=== PATIENT | female | born 1950 | race Caucasian/White ===

== ENCOUNTER 2016-06-28 21:33 | Inpatient (IN) | payer MEDICARE, MEDICAID, OTHER ==
[~2016-06-28] VITALS: Ht 154.9 cm; Wt 75.3 kg
--- NOTE | 2016-06-28 21:47 | NUR ---
called fr [facility], no response, no answer.
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
[2016-06-28 22:31] LABS: BASOPHILS # (AUTO) 0.1 /CMM (0.0-0.2); BASOPHILS % (AUTO) 1.6 % (0.0-2.0); EOSINOPHILS # (AUTO) 0.3 /CMM (0.0-0.7); EOSINOPHILS % (AUTO) 3.1 % (0.0-6.0); HEMATOCRIT 31 % (33-45); HEMOGLOBIN 10.2 g/dL (11.5-14.8); LYMPHOCYTES % (AUTO) 11.4 % (20.0-44.0); MEAN CORPUSCULAR HEMOGLOBIN 29 PG (26.0-33.0); MEAN CORPUSCULAR HGB CONC 33 g/dl (31.0-36.0); MEAN CORPUSCULAR VOLUME 88 fL (82-100); MONOCYTES # (AUTO) 0.6 /CMM (0.1-1.30); NEUTROPHILS % (AUTO) 76.9 % (43.0-81.0); PLATELET COUNT (AUTO) 401 /CMM (150-450); RDW COEFFICIENT OF VARIATION 15.6 (11.5-15.0); RED BLOOD CELL COUNT(AUTO) 3.55 MIL/uL (4.0-5.2); WHITE BLOOD COUNT (AUTO) 9.2 K/uL (4.3-11.0)
[2016-06-28 22:41] LABS: CALCIUM, SERUM 8.5 mg/dL (8.5-10.1); CARBON DIOXIDE 23 mmol/L (21-32); CHLORIDE 108 mmol/L (98-107); CREATININE 2.8 mg/dL (0.6-1.3); GFR 17 mL/min (>60); GLUCOSE 301 mg/dL (74-106); SODIUM SERUM 143 mmol/L (136-145); UREA NITROGEN, BLOOD 53 mg/dL (7-18)
[2016-06-28 22:47] LABS: ACETAMINOPHEN 0 ug/ml (10-30); ALANINE AMINOTRANSFERASE 36 U/L (12-78); ALBUMIN 3.1 g/dL (3.4-5.0); ALCOHOL, BLOOD < 3 mg/dL (0-0); ALKALINE PHOSPHATASE 71 U/L (46-116); ASPARTATE AMINOTRANSFERASE 22 U/L (15-37); BILIRUBIN,DIRECT 0.1 mg/dL (0.0-0.2); BILIRUBIN,TOTAL 0.3 mg/dL (0.2-1.0); SALICYLATE 1.1 mg/dL (2.8-20.0)
[2016-06-28 23:42] LABS: APPEARANCE,URINE SL CLOUDY (CLEAR); BILIRUBIN,URINE NEGATIVE (NEGATIVE); BLOOD, URINE NEGATIVE Ery/uL (NEGATIVE); COLOR,URINE YELLOW (YELLOW); KETONES,URINE NEGATIVE (NEGATIVE); LEUKOCYTE ESTERASE ,URINE NEGATIVE (NEGATIVE); NITRITE, URINE NEGATIVE (NEGATIVE); PH,URINE 5.5 (5.0-8.0); PROTEIN,URINE 3+ mg/dl (NEGATIVE); UGLUCOSE 1+ mg/dL (NEGATIVE); UROBILINOGEN,URINE 0.2 EU/dL (0.2)
[2016-06-28 23:46] LABS: CANNABINOID, URINE NEGATIVE (NEGATIVE); PHENCYCLIDINE SCREEN,URINE NEGATIVE (NEGATIVE)
[2016-06-28 23:58] LABS: ADD URINE CULTURE YES; BACTERIA,URINE Few /HPF (None Seen); RBC,URINE 0-2 /HPF (0-2); SQUAMOUS EPITHELIAL CELL,UR Few /HPF (None Seen)
--- NOTE | 2016-06-29 02:06 | NUR ---
ART CAPILLA, PERSONAL PROPERTY ASSESSOR AT BEDSIDE FOR EVAL.
--- NOTE | 2016-06-29 02:45 | NUR ---
Lexa sims in [facility] - 06/29/16 at 0312 by ALIICA RYANN AT BEDSIDE FOR EVALUATION
[2016-06-29] MEDS ORDERED: HYDR-4077 PO (03:31)
[2016-06-29] MEDS ORDERED: CARV12.52 PO (03:31)
[2016-06-29] MEDS ORDERED: ISOS10TA2 PO (03:31)
[2016-06-29] MEDS ORDERED: ATOR20TA PO (03:31)
[2016-06-29] MEDS ORDERED: AMLO5TAB2 PO (03:31)
[2016-06-29] MEDS ORDERED: FURO-145 PO (03:31)
[2016-06-29] MEDS ORDERED: CLON0.3T PO (03:31)
[2016-06-29] MEDS ORDERED: SITA50TA PO (03:31)
[2016-06-29] MEDS ORDERED: OLAN5TAB3 PO (03:31)
[2016-06-29] MEDS ORDERED: CLON-418 PO (03:31)
--- NOTE | 2016-06-29 03:31 | NUR ---
REPORT GIVEN TO MIRELLA BRYSON RM 211
[2016-06-29] MEDS ORDERED: LORAZEPAM 0.5 MG TABLET PO PRN (04:30)
[2016-06-29] MEDS ORDERED: MAG HYDROX/AL HYDROX/SIMETH 30 ML UDC PO PRN (04:30)
[2016-06-29] MEDS ORDERED: TEMAZEPAM 7.5 MG CAPSULE PO PRN (04:30)
[2016-06-29] MEDS ORDERED: MAGNESIUM HYDROXIDE 30 ML UDC PO PRN ×2 (04:30→10:00)
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
[2016-06-29 05:26] VITALS: BP 162/98
--- NOTE | 2016-06-29 06:24 | NUR ---
GPS/RN-PLACED A CALL TO DR. SANCHEZ MADE AWARE OF PTS. ADMISSION TO GPS.HE ORDERED TO CONTINUE CURRENT MEDS .
--- NOTE | 2016-06-29 06:50 | NUR ---
TRY TO CALL DAUGHTER CANNOT BE REACH. WILL ENDORSE TO NEXT SHIFT NURSE FOR FOLLOW UP.
[2016-06-29] MEDS ORDERED: MAGN400O6 PO (07:42)
[2016-06-29] MEDS ORDERED: MULT-659 PO (07:42)
[2016-06-29] MEDS ORDERED: ATOR10TA PO (07:42)
[2016-06-29] MEDS ORDERED: ACET-868 PO (07:42)
[2016-06-29] MEDS ORDERED: BLOO-668 IN (07:42)
[2016-06-29 08:00] VITALS: BP 123/61
[2016-06-29] MEDS ORDERED: AMOXICILLIN TRIHYDRATE 500 MG CAPSULE PO SCH ×2 (08:30→09:00)
[2016-06-29] MEDS: BLOOD SUGAR DIAGNOSTIC 1 EACH STRIP IN SCH ×4 (08:30→22:00)
[2016-06-29] MEDS ORDERED: DEXTROSE 50%-WATER 50 ML DISP.SYRIN IV PRN (08:30)
--- NOTE | 2016-06-29 08:54 | NUR ---
GPS RN: PATIENT REFUSED MORNING BLOOD DRAW AND ACCUCHECK, APPROACHED THREE TIMES, EXPLAINED THE IMPORTANCE, STILL REFUSED. NOT IN APPARENT DISTRESS, VS STABLE CONTINUE TO MONITOR.
[2016-06-29] MEDS ORDERED: BLOOD SUGAR DIAGNOSTIC 1 EACH STRIP IN PRN (10:00)
[2016-06-29] MEDS ORDERED: SITAGLIPTIN PHOSPHATE 50 MG TABLET PO SCH (10:00)
[2016-06-29] MEDS ORDERED: ACETAMINOPHEN 325 MG TABLET PO PRN (10:00)
[2016-06-29] MEDS: AMOXICILLIN TRIHYDRATE 250 MG CAPSULE PO SCH ×2 (10:25→21:00)
[2016-06-29] MEDS: AMLODIPINE BESYLATE 5 MG TABLET PO SCH ×2 (10:28→17:50)
[2016-06-29] MEDS: CARVEDILOL 12.5 MG TABLET PO SCH ×2 (10:29→17:50)
[2016-06-29] MEDS: FUROSEMIDE 20 MG TABLET PO SCH (10:29)
[2016-06-29] MEDS: LINAGLIPTIN 5 MG TABLET PO SCH (10:29)
[2016-06-29] MEDS: MULTIVIT, IRON, MIN NO. 8, FA 1 TAB TABLET PO SCH (10:30)
[2016-06-29] MEDS: CLONIDINE HCL 0.1 MG TABLET PO SCH ×2 (11:12→17:00)
[2016-06-29] MEDS ORDERED: CLONIDINE HCL 0.1 MG PO PRN (11:30)
--- NOTE | 2016-06-29 11:53 | NUR ---
Initial discharge plan :Pt. is a resident at [facility] [address] [facility] [address]; [phone] and unsure at this point if will return back. SHERRY contacted Gerber from facility but has not heard back. Will follow up again. Son, Alexander [phone] did not appear to know that pt. is at a facility and is not homeless, as that's what he reported. SHERRY will try to talk to Meli, pt. daughter [phone] to confirm that pt. should return to the facility if facility agrees to readmit her. SHERRY will follow up with MD and pt. and will help form safe and proper discharge.
[2016-06-29] MEDS: hydrALAZINE HCL 50 MG TABLET PO SCH ×2 (12:00→18:46)
--- NOTE | 2016-06-29 12:01 | NUR ---
GPS RN: PATIENT REFUSED BLOOD DRAW X2. ALSO REFUSED ACCUCHECK, EASILY AGITATED.
[2016-06-29] MEDS: ISOSORBIDE DINITRATE (10MG) 10 MG TABLET PO SCH ×2 (13:00→17:51)
[2016-06-29] MEDS: DIVALPROEX SODIUM 125 MG TABLET.DR PO SCH ×2 (13:00→21:00)
[2016-06-29] MEDS: HALOPERIDOL 1 MG TABLET PO SCH ×2 (13:00→17:50)
--- NOTE | 2016-06-29 14:39 | NUR ---
SHERRY called daughter, Meli [phone] but she was unavailable and voicemail was not available; hence, SW was unable to leave a voicemail.
[2016-06-29 16:00] VITALS: BP 136/63
[2016-06-29 20:00] VITALS: BP 135/63
--- NOTE | 2016-06-29 21:10 | NUR ---
PT REFUSED SCHEDULED MEDICATIONS. [id number], EXPLAIN THE RISK AND BENEFITS OF NOT TAKING HER MEDS. PT STILL REFUSED.
[2016-06-29] MEDS: ATORVASTATIN 10 MG TABLET PO SCH (22:00)
--- NOTE | 2016-06-29 22:21 | NUR ---
PT REFUSED HER BLOOD SUGAR TO BE CHECKED. EXPLAIN THE RISK AND BENEFITS. PT STILL REFUSED.
[2016-06-30] MEDS: hydrALAZINE HCL 50 MG TABLET PO SCH ×4 (06:00→17:17)
[2016-06-30] MEDS: BLOOD SUGAR DIAGNOSTIC 1 EACH STRIP IN SCH ×4 (07:44→21:46)
--- NOTE | 2016-06-30 07:55 | NUR ---
GPS RN: PATIENT'S BG LEVEL IS 133, PATIENT REFUSED SS COVERAGE.
[2016-06-30 08:15] VITALS: BP 147/71
[2016-06-30] MEDS: AMLODIPINE BESYLATE 5 MG TABLET PO SCH ×2 (08:54→17:18)
[2016-06-30] MEDS: ISOSORBIDE DINITRATE (10MG) 10 MG TABLET PO SCH ×3 (08:54→17:17)
[2016-06-30] MEDS: MULTIVIT, IRON, MIN NO. 8, FA 1 TAB TABLET PO SCH (08:54)
[2016-06-30] MEDS: DIVALPROEX SODIUM 125 MG TABLET.DR PO SCH ×2 (08:55→21:09)
[2016-06-30] MEDS: CARVEDILOL 12.5 MG TABLET PO SCH ×2 (08:55→17:17)
[2016-06-30] MEDS: LINAGLIPTIN 5 MG TABLET PO SCH (08:55)
[2016-06-30] MEDS: HALOPERIDOL 1 MG TABLET PO SCH ×2 (08:55→17:18)
[2016-06-30] MEDS: AMOXICILLIN TRIHYDRATE 250 MG CAPSULE PO SCH ×2 (08:59→21:08)
[2016-06-30] MEDS: FUROSEMIDE 20 MG TABLET PO SCH (09:00)
[2016-06-30] MEDS: CLONIDINE HCL 0.1 MG TABLET PO SCH ×3 (09:00→17:23)
--- NOTE | 2016-06-30 11:14 | NUR ---
DR. GUTIERREZ GAVE AN ORDER FOR THE DENIAL RIGHTS FOR ROOM SEARCH TO LOOK FOR THE MISSING CORDLESS PHONES.
--- NOTE | 2016-06-30 12:18 | NUR ---
GPS RN: PATIENT REFUSED 1200 ACCUCHECK AND CLONIDINE. EASILY AGITATED. PATIENT NOT IN ANY DISTRESS, CONTINUE TO MONITOR.
[2016-06-30] MEDS: BENZTROPINE MESYLATE (1 MG) 1 MG TABLET PO SCH ×2 (13:21→17:17)
[2016-06-30 16:15] VITALS: BP 133/67
[2016-06-30] MEDS: INSULIN REGULAR, HUMAN 100 UNIT/ML 3 ML VIAL SQ PRN ×2 (17:38→21:48)
--- NOTE | 2016-06-30 17:38 | NUR ---
GPS RN: PATIENT'S BG LEVEL 148MG/DL, PATIENT REFUSED SS COVERAGE. NOT IN ANY DISTRESS, VS STABLE. ALL NEEDS ATTENDED, KEPT CLEAN AND COMFORTABLE, CONTINUE TO MONITOR AND ENDORSE TO THE UPCOMING SHIFT.
[2016-06-30 20:00] VITALS: BP 114/54
[2016-06-30] MEDS: ATORVASTATIN 10 MG TABLET PO SCH (22:28)
[2016-07-01] MEDS: hydrALAZINE HCL 50 MG TABLET PO SCH ×4 (06:00→18:00)
[2016-07-01] MEDS: BLOOD SUGAR DIAGNOSTIC 1 EACH STRIP IN SCH ×4 (07:30→22:00)
[2016-07-01 08:00] VITALS: BP 152/80
[2016-07-01] MEDS: ISOSORBIDE DINITRATE (10MG) 10 MG TABLET PO SCH ×3 (08:29→16:58)
[2016-07-01] MEDS: HALOPERIDOL 1 MG TABLET PO SCH ×3 (08:29→16:56)
[2016-07-01] MEDS: DIVALPROEX SODIUM 125 MG TABLET.DR PO SCH ×2 (08:29→21:54)
[2016-07-01] MEDS: LINAGLIPTIN 5 MG TABLET PO SCH (08:29)
[2016-07-01] MEDS: MULTIVIT, IRON, MIN NO. 8, FA 1 TAB TABLET PO SCH (08:29)
[2016-07-01] MEDS: CARVEDILOL 12.5 MG TABLET PO SCH ×2 (08:30→16:57)
[2016-07-01] MEDS: CLONIDINE HCL 0.1 MG TABLET PO SCH ×3 (08:30→16:57)
[2016-07-01] MEDS: AMOXICILLIN TRIHYDRATE 250 MG CAPSULE PO SCH ×2 (08:30→21:54)
[2016-07-01] MEDS: BENZTROPINE MESYLATE (1 MG) 1 MG TABLET PO SCH ×2 (08:30→16:57)
[2016-07-01] MEDS: AMLODIPINE BESYLATE 5 MG TABLET PO SCH ×2 (08:34→16:56)
--- NOTE | 2016-07-01 08:51 | NUR ---
GPS RN NOTE: PATIENT REFUSED ACCU CHECK COMPLIANT WITH AM MEDICATION WILL CONTINUE MONITORING
--- NOTE | 2016-07-01 11:32 | NUR ---
GPS RN NOTE: PATIENT LYING IN BED WITH HER EYES CLOSED, AWAKE , REFUSED LABS X2 AND REFUSED PER MD ORDER STRAIGHT CATH TO EMPTY HER BLADER , PT EXPLAIN IMPORTANCE ON TX X3 BUT PT CONTINUE TO REFUSED.
[2016-07-01 15:58] VITALS: BP 129/69
[2016-07-01 20:10] VITALS: BP 149/76
[2016-07-01] MEDS: ATORVASTATIN 10 MG TABLET PO SCH (21:54)
--- NOTE | 2016-07-02 00:17 | NUR ---
Pt has been guarded, evasive, isolative, hypervigilant, easily irritable, & refusing her Accucheck but compliant with meds in general.
[2016-07-02] MEDS: hydrALAZINE HCL 50 MG TABLET PO SCH ×4 (05:54→18:00)
[2016-07-02] MEDS: BLOOD SUGAR DIAGNOSTIC 1 EACH STRIP IN SCH ×4 (07:30→20:26)
[2016-07-02] MEDS: DIVALPROEX SODIUM 125 MG TABLET.DR PO SCH ×2 (08:42→20:18)
[2016-07-02] MEDS: CLONIDINE HCL 0.1 MG TABLET PO SCH ×3 (08:42→17:00)
[2016-07-02] MEDS: BENZTROPINE MESYLATE (1 MG) 1 MG TABLET PO SCH ×2 (08:42→17:00)
[2016-07-02] MEDS: CARVEDILOL 12.5 MG TABLET PO SCH ×2 (08:42→17:00)
[2016-07-02] MEDS: AMOXICILLIN TRIHYDRATE 250 MG CAPSULE PO SCH ×2 (08:42→20:17)
[2016-07-02] MEDS: HALOPERIDOL 1 MG TABLET PO SCH ×3 (08:43→17:00)
[2016-07-02] MEDS: ISOSORBIDE DINITRATE (10MG) 10 MG TABLET PO SCH ×3 (08:43→17:00)
[2016-07-02] MEDS: AMLODIPINE BESYLATE 5 MG TABLET PO SCH ×2 (08:43→17:00)
[2016-07-02] MEDS: MULTIVIT, IRON, MIN NO. 8, FA 1 TAB TABLET PO SCH (08:43)
[2016-07-02] MEDS: LINAGLIPTIN 5 MG TABLET PO SCH (08:44)
--- NOTE | 2016-07-02 09:00 | NUR ---
GPS/RN PATIENT REFUSED VITAL SIGNS, ACCUCHECK AND ALL MORNING MEDICATIONS X 3, EXPLAINED RISKS AND BENEFITS, CONTINUES TO REFUSE, WILL CONTINUE TO EDUCATE AND ENCOURAGE TO COMPLY WITH MD REGIMEN
--- NOTE | 2016-07-02 11:00 | NUR ---
GPS/RN PATIENT REFUSED BLOOD DRAW, MORNING AND AFTERNOON, WILL CONTINUE TO EDUCATE AND ENCOURAGE TO COMPLY WITH MD REGIMEN AND TREATMENTS.
--- NOTE | 2016-07-02 12:30 | NUR ---
GPS/RN PATIENT REFUSED VITAL SIGNS, ACCUCHECK AND 1300 MEDICATIONS X 3, EXPLAINED RISKS AND BENEFITS, CONTINUES TO REFUSE, WILL CONTINUE TO EDUCATE AND ENCOURAGE TO COMPLY WITH MD REGIMEN
--- NOTE | 2016-07-02 14:40 | NUR ---
SHERRY called Meli, pt. daughter [phone] again with the same result. SW was informed that pt's daughter moved all pt's belongings and does not want pt. to return back to the facility. SW will have to find a new placement but daughter is not available to discuss options.
--- NOTE | 2016-07-02 14:46 | NUR ---
Pt. was referred to [facility] [address] [place] [address] . Will follow up
[2016-07-02 16:00] VITALS: BP 158/77
--- NOTE | 2016-07-02 17:45 | NUR ---
GPS/RN PATIENT REFUSED ACCUCHECK AND 1700 MEDICATIONS X 3, EXPLAINED RISKS AND BENEFITS, CONTINUES TO ADAMANTLY REFUSE, WILL CONTINUE TO ENCOURAGE TO COMPLY WITH MD REGIMEN AND TREATMENTS.
[2016-07-02] MEDS: ACETAMINOPHEN 325 MG TABLET PO PRN ×2 (20:15→20:18)
[2016-07-02] MEDS: INSULIN REGULAR, HUMAN 100 UNIT/ML 3 ML VIAL SQ PRN (20:29)
--- NOTE | 2016-07-02 20:50 | NUR ---
GPS RN NOTE: BLOOD SUGAR CHECKED = 277 AND INSULIN COVERAGE = 6UNITS GIVEN ORDERED AND REQUESTED BY THE PATIENT
[2016-07-02] MEDS: ATORVASTATIN 10 MG TABLET PO SCH (21:16)
[2016-07-02 21:36] VITALS: BP 180/97
[2016-07-03] MEDS: hydrALAZINE HCL 50 MG TABLET PO SCH ×3 (01:33→12:54)
--- NOTE | 2016-07-03 01:34 | NUR ---
GPS RN NOTE: PATIENT TOOK BP MEDS AT THIS TIME AFTER MULTIPLE OFFERED ATTEMPTS AND EXPLANATIONS. WILL CONTINUE TO MONITOR [id number] FOR SAFETY
[2016-07-03] MEDS: HALOPERIDOL 1 MG TABLET PO SCH ×2 (08:03→12:54)
[2016-07-03] MEDS: CLONIDINE HCL 0.1 MG TABLET PO SCH ×2 (08:05→12:53)
[2016-07-03] MEDS: BENZTROPINE MESYLATE (1 MG) 1 MG TABLET PO SCH (08:06)
[2016-07-03] MEDS: DIVALPROEX SODIUM 125 MG TABLET.DR PO SCH (08:07)
[2016-07-03] MEDS: CARVEDILOL 12.5 MG TABLET PO SCH (08:07)
[2016-07-03] MEDS: ISOSORBIDE DINITRATE (10MG) 10 MG TABLET PO SCH ×2 (08:08→12:54)
[2016-07-03] MEDS: MULTIVIT, IRON, MIN NO. 8, FA 1 TAB TABLET PO SCH (08:08)
[2016-07-03] MEDS: AMLODIPINE BESYLATE 5 MG TABLET PO SCH (08:08)
[2016-07-03] MEDS: LINAGLIPTIN 5 MG TABLET PO SCH (08:09)
[2016-07-03] MEDS: AMOXICILLIN TRIHYDRATE 250 MG CAPSULE PO SCH (08:11)
[2016-07-03] MEDS: BLOOD SUGAR DIAGNOSTIC 1 EACH STRIP IN SCH ×2 (08:11→12:14)
[2016-07-03] MEDS: INSULIN REGULAR, HUMAN 100 UNIT/ML 3 ML VIAL SQ PRN ×2 (08:12→12:15)
--- NOTE | 2016-07-03 08:12 | NUR ---
[id number]: BLOOD SUGAR IS 139 MG/DL AND GAVE 2 UNITS OF REGULAR INSULIN
[2016-07-03 08:36] VITALS: BP 149/92
--- NOTE | 2016-07-03 12:15 | NUR ---
[id number]: BLOOD SUGAR IS 140 MG/DL AND GAVE 2 UNITS OF REGULAR INSULIN
--- NOTE | 2016-07-03 12:27 | NUR ---
Patient got accepted to [facility] [address] [place] [address] .
--- NOTE | 2016-07-03 12:32 | NUR ---
SW attempted to contact patient's daughter, Meli (three times) ([phone]) to inform her that patient is being discharged to [address] [address] . but she was unavailable and voicemail was not available.
[2016-07-03 12:54] VITALS: BP 150/83
--- NOTE | 2016-07-03 13:25 | NUR ---
machine lay out worker contacted patient's daughter Meli ([phone]) to inform her that patient is being discharged [address] [address] . Patient's daughter was agreeable with the discharge plan.
--- NOTE | 2016-07-03 16:00 | NUR ---
[id number]: PT IS 65 YEARS OLD FEMALE DISCHARGE TO [facility] AT [address] [facility] [place]. [address], IN STABLE CONDITION. COMPLIANT WITH MEDICATIONS, COOPERATIVE WITH TREATMENT PLANS. PT DENIES SI/HI. BEHAVIOR IMPROVED, PSYCHIATRIC TX PLANS MET, MEDICAL TX PLANS DEFERRED FOR CONTINUAL MONITORING. EDUCATED PT ABOUT AFTER CARE PLAN AND COPY PROVIDED. RETURN PERSONAL BELONGINGS TO PT. MEDICATIONS RECONCILED WITH DR. GUTIERREZ AND DR. SANCHEZ. REPORT GIVEN TO MADIE AT [facility] FOR CONTINUITY OF CARE. PT REFUSED TO SIGN DISCHARGE PAPERWORK. PT REFUSED SKIN ASSESSMENT
== END 2016-07-03 16:00 | DRG 885 ==
LOC: ER 21:44 → GPS 06-29 02:41
PROVIDERS: ADMIT Psychiatry & Neurology Psychosomatic Medicine; ATTEND Legal Medicine
DX: F29 Unspecified psychosis not due to a substance or known physiological condition (principal); F01.51 Vascular dementia, unspecified severity, with behavioral disturbance; N17.9 Acute kidney failure, unspecified; N18.9 Chronic kidney disease, unspecified; G93.41 Metabolic encephalopathy; I13.0 Hypertensive heart and chronic kidney disease with heart failure and stage 1 through stage 4 chronic kidney disease, or unspecified chronic kidney disease; N39.0 Urinary tract infection, site not specified; I50.30 Unspecified diastolic (congestive) heart failure; Z73.6 Limitation of activities due to disability; Z87.440 Personal history of urinary (tract) infections; E11.22 Type 2 diabetes mellitus with diabetic chronic kidney disease; E78.5 Hyperlipidemia, unspecified; M19.90 Unspecified osteoarthritis, unspecified site
CPT/HCPCS: 36415; 76770-TC; 80048-TC; 80076-TC; 80305; 81000-TC; 82962-TC; 85025-TC; 87081-TC; 87086-TC; A4606; G0480; G6039-TC; J1815; Z7610

== ENCOUNTER 2016-07-05 09:39 | Inpatient (IN) | payer MEDICARE, OTHER, MEDICAID ==
[~2016-07-05] VITALS: Ht 152.4 cm; Wt 54.4 kg
[~2016-07-05 09:39] MED LIST: ACET-868 PO; AMLO5TAB2 PO; ATOR10TA PO; BLOO-668 IN; CARV12.52 PO; CLON-418 PO; CLON0.3T PO; FURO-145 PO; HYDR-4077 PO; ISOS10TA2 PO; MAGN400O6 PO; MULT-659 PO; OLAN5TAB3 PO; SITA50TA PO
[2016-07-05] MEDS ORDERED: ENALAPRILAT DIHYD. (2.5MG/ML) 1.25 MG/ML VIAL IV ONE ×2 (10:00→10:04)
[2016-07-05] MEDS ORDERED: NITROGLYCERIN PACKET 1 GM PACKET TD ONE (10:00)
[2016-07-05] MEDS ORDERED: FUROSEMIDE 40 MG/4 ML VIAL IV ONE (10:00)
[2016-07-05] MEDS ORDERED: ASPIRIN 81 MG TAB.CHEW PO ONE (10:00)
--- NOTE | 2016-07-05 10:00 | NUR ---
BB FROM [facility] FOR SOB THIS AM. SATING AT 89% RA, PALCED ON OXYGEN VIA NC 3LPM SATING AT 97%. PT AAOX2. NOTED ELEVATED BP. SEEN BY FOR EVAL. SAFETY AND COMFORT MEASURES PROVIDED. WILL MONITOR.
[2016-07-05] MEDS ORDERED: ASPIRIN 81 MG TAB.CHEW ONE (10:04)
[2016-07-05] MEDS ORDERED: NITROGLYCERIN PACKET 1 GM PACKET ONE (10:05)
[2016-07-05] MEDS ORDERED: FUROSEMIDE 40 MG/4 ML VIAL ONE (10:05)
[2016-07-05 10:20] LABS: EOSINOPHILS # (AUTO) 0.1 /CMM (0.0-0.7); EOSINOPHILS % (AUTO) 0.7 % (0.0-6.0); HEMOGLOBIN 10.7 g/dL (11.5-14.8); LYMPHOCYTES # (AUTO) 0.7 /CMM (0.8-4.8)
[2016-07-05 10:22] LABS: BASOPHILS # (AUTO) 0.4 /CMM (0.0-0.2); BASOPHILS % (AUTO) 2.8 % (0.0-2.0); HEMATOCRIT 32 % (33-45); LYMPHOCYTES % (AUTO) 5.4 % (20.0-44.0); MEAN CORPUSCULAR HEMOGLOBIN 30 PG (26.0-33.0); MEAN CORPUSCULAR HGB CONC 34 g/dl (31.0-36.0); MEAN CORPUSCULAR VOLUME 88 fL (82-100); MONOCYTES # (AUTO) 0.5 /CMM (0.1-1.30); NEUTROPHILS # (AUTO) 11.4 /CMM (1.8-8.9); NEUTROPHILS % (AUTO) 87.1 % (43.0-81.0); PLATELET COUNT (AUTO) 374 /CMM (150-450); RDW COEFFICIENT OF VARIATION 14.8 (11.5-15.0); RED BLOOD CELL COUNT(AUTO) 3.64 MIL/uL (4.0-5.2); WHITE BLOOD COUNT (AUTO) 13.1 K/uL (4.3-11.0)
[2016-07-05 10:32] LABS: CALCIUM, SERUM 9.5 mg/dL (8.5-10.1); CREATININE 2.2 mg/dL (0.6-1.3); POTASSIUM 4.3 mmol/L (3.5-5.1)
[2016-07-05 10:35] LABS: INR 0.99 (0.87-1.13); PROTHROMBIN TIME 10.3 SECS (9.5-12.7)
[2016-07-05 10:40] LABS: TROPONIN I 0.088 ng/mL (0.00-0.056)
[2016-07-05 10:44] LABS: ALBUMIN 3.5 g/dL (3.4-5.0); BILIRUBIN,DIRECT 0.1 mg/dL (0.0-0.2); BILIRUBIN,TOTAL 0.8 mg/dL (0.2-1.0); TOTAL PROTEIN, SERUM 7.9 g/dL (6.4-8.2)
[2016-07-05] MEDS ORDERED: LORA0.5T PO (11:21)
[2016-07-05] MEDS ORDERED: MAG30ORA PO (11:21)
[2016-07-05] MEDS ORDERED: LINA5TAB PO (11:21)
[2016-07-05] MEDS ORDERED: DIVA125T2 PO (11:21)
[2016-07-05] MEDS ORDERED: INSU100V26 SQ (11:21)
--- NOTE | 2016-07-05 11:27 | NUR ---
DR. DEONTE MORTESNEN SCHEDULE SUPERVISOR
[2016-07-05] MEDS ORDERED: ENAL10TA PO (11:43)
--- NOTE | 2016-07-05 11:57 | NUR ---
DR.BAHADORI CERNA
--- NOTE | 2016-07-05 12:29 | NUR ---
INFORMED NURSING SUP. PT WILL NEED SITTER
--- NOTE | 2016-07-05 14:45 | NUR ---
TRIED CALLING FOR REPORT TO KIANA TWICE NURSE NOT AVAILABLE AT THIS TIME.
--- NOTE | 2016-07-05 15:00 | NUR ---
REPORT GIVEN TO LASHONDA BARRY FOR TELE 109
--- NOTE | 2016-07-05 15:30 | NUR ---
PT ADMITTED FROM [facility] WITH DX OF CHF. BREATHING ON 3LPM VIA N.C. NO S/S OF DISTRESS,NO C/O PAIN.ALL M.D ORDERS NOTED AND CARRIED OUT.WILL CONTINUE TO MONITOR FOR CHANGES.SAFETY MEASURES IN PLACE BED IN LOW AND LOCKED POSITION.ALL NEEDS ANTICIPATED.
[2016-07-05] MEDS ORDERED: BUMETANIDE INJ 0.25 MG/ML VIAL IV SCH (16:00)
[2016-07-05] MEDS ORDERED: ONDANSETRON HCL/PF 4 MG/2 ML VIAL IV PRN (16:00)
[2016-07-05] MEDS ORDERED: ACETAMINOPHEN 325 MG TABLET PO PRN ×2 (16:00→18:00)
[2016-07-05] MEDS: NITROGLYCERIN 30 GM TUBE TP SCH ×2 (17:33→21:31)
[2016-07-05] MEDS ORDERED: BLOOD SUGAR DIAGNOSTIC 1 EACH STRIP IN PRN (18:00)
[2016-07-05] MEDS ORDERED: INSULIN REGULAR, HUMAN 100 UNIT/ML 3 ML VIAL SQ PRN (18:00)
[2016-07-05] MEDS ORDERED: MAG HYDROX/AL HYDROX/SIMETH 30 ML UDC PO PRN (18:00)
[2016-07-05] MEDS ORDERED: hydrALAZINE HCL 50 MG TABLET PO SCH ×2 (18:00→19:00)
[2016-07-05] MEDS ORDERED: LORAZEPAM 0.5 MG TABLET PO PRN (18:00)
[2016-07-05] MEDS: CLONIDINE HCL 0.1 MG TABLET PO SCH (18:11)
[2016-07-05] MEDS: ENOXAPARIN SODIUM 30 MG/0.3 ML DISP.SYRIN SQ SCH (18:44)
[2016-07-05] MEDS ORDERED: BUMETANIDE INJ 16 MG in IV NS 0.9% 16 ML IV ONE (19:00)
--- NOTE | 2016-07-05 19:30 | NUR ---
RN NOTES RECEIVED PT AWKE ON BED. NO ACUTE RESP DISTRESS AT THIS TIME TOLERATED O2 3LPM VIA NC. SATING 98%. TELE MONITOR REVEALS SR HR 71. PT IS AOX 2 ABLE TO MAKE KNOWN NEEDS DAUGHTER AT BEDSIDE. PT ASSISTED TO THE BATHROOM FOR BLADDER BUT WITH PERIODS OF INCONTINENCE NOTED. WITH IV SITE ON LEFT HAND G 18 INTACT AND PATENT WILL STARTED BUMEX ORDERED. ENCOURAGED PT TO ELEVATE BOTH LEGS WITH PILLOWS. CALL LIGHT KEPT WITHIN EASY REACH. WILL MONITOR CLOSELY.
[2016-07-05] MEDS ORDERED: IV SET PRIMARY PUMP SET 1 EA INFUS.SET MC ONE (19:45)
[2016-07-05 20:00] VITALS: BP_SYST 140; BP_SYST 96; BP_DIAS 51; BP_DIAS 70
[2016-07-05] MEDS: ATORVASTATIN 10 MG TABLET PO SCH (21:30)
[2016-07-05] MEDS: DIVALPROEX SODIUM 125 MG TABLET.DR PO SCH (21:30)
[2016-07-06] VITALS: BP 138/69
[2016-07-06] MEDS ORDERED: DEXTROSE 50%-WATER 50 ML DISP.SYRIN IV PRN
[2016-07-06 04:00] VITALS: BP 164/79
[2016-07-06] MEDS: NITROGLYCERIN 30 GM TUBE TP SCH (04:10)
--- NOTE | 2016-07-06 06:00 | NUR ---
RN NOTES PT ASLEEP WELL ON BED. NO ACUTE RESP DISTRESS TOLERATED O2 3LPM VIA NC TOLERATED RA SATING 97% ASSISTED WHEN GOING TO THE BATHROOM PER PT SHE HAS BLURRY EYES AND SAW SHADOWS MOST OF THE TIME FAMILY SAID LAST NIGHT WELL. AMBULATE WITHOUT SOB. AFEBRILE. COMPLAINED OF PAIN IN HER LEGS BUT REFUSED TO HAVE PAIN MEDICINE. NOTED WITH EPISODE PF REFUSING MEDICINE RADHA. INSULIN. RISK AND BENEFITS EXPLAINED.INEFFECTIVE KEPT PT CLEAN AND DRY. REMINDED TO USED CALL LIGHT FOR ASSISTANCE. BED ALARM KEPT ON. BED IN LOWEST POSSIBLE POSITION. CALL LIGHT KEPT WITHIN EASY REACH. WILL ENDORSED CONTINUITY OF CARE TO AM NURSE.
[2016-07-06 06:32] LABS: BASOPHILS # (AUTO) 0.1 /CMM (0.0-0.2); BASOPHILS % (AUTO) 1.1 % (0.0-2.0); EOSINOPHILS # (AUTO) 0.2 /CMM (0.0-0.7); EOSINOPHILS % (AUTO) 2.7 % (0.0-6.0); HEMATOCRIT 29 % (33-45); HEMOGLOBIN 9.5 g/dL (11.5-14.8); LYMPHOCYTES # (AUTO) 1.5 /CMM (0.8-4.8); LYMPHOCYTES % (AUTO) 18.2 % (20.0-44.0); MEAN CORPUSCULAR HEMOGLOBIN 30 PG (26.0-33.0); MEAN CORPUSCULAR HGB CONC 33 g/dl (31.0-36.0); MEAN CORPUSCULAR VOLUME 89 fL (82-100); MONOCYTES # (AUTO) 1.1 /CMM (0.1-1.30); MONOCYTES % (AUTO) 13.6 % (2.0-12.0); NEUTROPHILS # (AUTO) 5.4 /CMM (1.8-8.9); NEUTROPHILS % (AUTO) 64.4 % (43.0-81.0); PLATELET COUNT (AUTO) 296 /CMM (150-450); RDW COEFFICIENT OF VARIATION 16.1 (11.5-15.0); RED BLOOD CELL COUNT(AUTO) 3.23 MIL/uL (4.0-5.2); WHITE BLOOD COUNT (AUTO) 8.3 K/uL (4.3-11.0)
[2016-07-06] MEDS: BLOOD SUGAR DIAGNOSTIC 1 EACH STRIP IN SCH ×4 (06:45→21:59)
[2016-07-06] MEDS: INSULIN REGULAR, HUMAN 100 UNIT/ML 3 ML VIAL SQ PRN ×2 (06:46→22:00)
[2016-07-06 06:48] LABS: CALCIUM, SERUM 8.4 mg/dL (8.5-10.1); CREATININE 2.5 mg/dL (0.6-1.3); PHOSPHORUS 4.5 mg/dL (2.5-4.9)
--- NOTE | 2016-07-06 07:00 | NUR ---
RN INITIAL NOTE REPORT RECEIVED FROM OM NURSE. PT A/O X2 RESTING COMFORTABLY IN BED. IV LH #18G PATENT FLUSHED AND INTACT. ALL SAFETY MEASURES IN PLACE. WILL CONTINUE TO MONITOR CLOSELY.
[2016-07-06 08:00] VITALS: BP 164/79
[2016-07-06] MEDS: ASPIRIN EC 81 MG TABLET.DR PO SCH (08:19)
[2016-07-06] MEDS: PANTOPRAZOLE 40 MG TABLET.DR PO SCH (08:19)
[2016-07-06] MEDS: ENALAPRIL MALEATE (10 MG) 10 MG TABLET PO SCH ×3 (08:19→17:00)
[2016-07-06] MEDS: LINAGLIPTIN 5 MG TABLET PO SCH (08:20)
[2016-07-06] MEDS: CARVEDILOL 12.5 MG TABLET PO SCH ×2 (08:20→16:42)
[2016-07-06] MEDS: AMLODIPINE BESYLATE 5 MG TABLET PO SCH ×2 (08:20→16:41)
[2016-07-06] MEDS: CLONIDINE HCL 0.1 MG TABLET PO SCH ×3 (08:21→17:00)
[2016-07-06] MEDS: DIVALPROEX SODIUM 125 MG TABLET.DR PO SCH ×2 (08:23→21:57)
[2016-07-06] MEDS ORDERED: FUROSEMIDE 80 MG TABLET PO SCH (09:00)
[2016-07-06] MEDS: hydrALAZINE HCL 50 MG TABLET PO SCH ×3 (09:00→17:00)
[2016-07-06] MEDS ORDERED: hydrALAZINE HCL 50 MG TABLET PO SCH (09:00)
[2016-07-06] MEDS: FUROSEMIDE 40 MG TABLET PO SCH (10:18)
[2016-07-06] MEDS: ISOSORBIDE DINITRATE (20MG) 20 MG TABLET PO SCH ×2 (10:19→16:41)
[2016-07-06] MEDS: NIFEdipine XL (30MG) 30 MG TAB PO SCH (10:19)
[2016-07-06 12:00] VITALS: BP 132/61
--- NOTE | 2016-07-06 13:00 | NUR ---
RN NOTE PT REFUSED B.S.
[2016-07-06 16:00] VITALS: BP 113/53
--- NOTE | 2016-07-06 17:45 | NUR ---
RN NOTE PT DOES NOT B.S. TAKEN UNTIL SHE HAS EATEN. EDUCATED PT ON IMPORTANCE OF TAKING IT BEFORE PT REFUSED.
--- NOTE | 2016-07-06 18:44 | NUR ---
RN NOTE B.S. TAKEN 185 PT REFUSED INSULIN.
--- NOTE | 2016-07-06 19:10 | NUR ---
RN INITIAL NOTES RECEIVED PATIENT IN BED, SLEEPING COMFORTABLY. NO DISTRESS NOTED. ON 3LPM OF O2 VIA NC, RESPIRATION IS EVEN AND UNLABORED WITH NO DISTRESS. PATIENT REFUSED TO COOPERATE WITH INITIAL ASSESSMENT AT THIS TIME, INSISTED TO BE LEFT ALONE WITH DOOR TO BE CLOSED. PER AM NURSE, PATIENT REFUSES ACCUCHECK AND INSULIN, OCCASIONALLY REFUSES CARE. PER AM NURSE, PATIENT ALSO INSISTS ON THE DOOR TO BE CLOSED AND TO BE LEFT ALONE. NOTED. PATIENT'S SAFETY AND COMFORT ENSURED. BED ALARM IN PLACE. BED IN LOW AND LOCKED POSITION. CALL LIGHT IN REACH. WILL MONITOR.
--- NOTE | 2016-07-06 19:13 | NUR ---
RN CLOSING NOTE PT A/O X2 RESTING COMFORTABLY IN BED. PT ON NC 3L NO C/O SOB. IV LH #18G SL PATENT FLUSHED AND INTACT. ALL SAFETY MEASURES IN PLACE. HALF OF B/P MEDICATIONS GIVEN FOR 1800 B/P TAKEN 1 HOUR LATER B/P 103/51 THE OTHER HALF NOT GIVEN. ALL ORDERS CARRIED OUT. REPORT GIVEN TO PM NURSE.
[2016-07-06 20:00] VITALS: BP 96/57
--- NOTE | 2016-07-06 20:00 | NUR ---
RN NOTES VS CHECKED ROUTINE BY MILK DRIVER. MILK DRIVER REPORTS TO RN THAT THE PATIENT IS WEARING DIAPER ENDORSED BY AM MILK DRIVER. PATIENT REFUSES PM CARE OFFERED AT THIS TIME. APPROACHED PATIENT AND OFFERED TO PATIENT ASSISTANCE WITH ADLS AND PM CARE. PATIENT OBSERVED TO BE INDIFFERENT, MEAN TO NURSES, INSISTED TO BE LEFT ALONE FOR HER TO SLEEP. PATIENT'S RIGHTS RESPECTED. PATIENT YELLED TO NURSES TO CLOSE THE DOOR ON THE WAY OUT; ENCOURAGED AND EXPLAINED TO PATIENT TO KEEP THE DOOR OPEN FOR SAFETY PRECAUTIONS, PATIENT REFUSED. DOOR CLOSED PER PATIENT'S INSISTENCE AND REQUEST. WILL MONITOR.
[2016-07-06] MEDS: ENOXAPARIN SODIUM 30 MG/0.3 ML DISP.SYRIN SQ SCH (21:00)
[2016-07-06] MEDS: ATORVASTATIN 10 MG TABLET PO SCH (21:57)
--- NOTE | 2016-07-06 22:20 | NUR ---
RN NOTES HS MEDS GIVEN TO PATIENT. PATIENT REFUSED ACCUCHECK, PATIENT ALSO REFUSED LOVENOX; EXPLAINED RISKS AND BENEFITS, PATIENT STRONGLY REFUSED, OBSERVED TO BE AGITATED. SAFETY AND COMFORT ENSURED. CALL LIGHT IN REACH.
[2016-07-07] VITALS: BP 84/47
--- NOTE | 2016-07-07 00:30 | NUR ---
RN NOTES PATIENT'S MIDNIGHT VS WITH BP NOTED TO BE 84/47, PATIENT WITH NO DISTRESS, SR AT 71. ATTEMPTED TO RECHECK PATIENT'S VS, HOWEVER PATIENT REFUSED STRONGLY AND REQUESTED TO BE LEFT ALONE WITH THE DOOR CLOSED. SAFETY AND COMFORT ENSURED. BED IN LOW AND LOCKED POSITION. CALL LIGHT IN REACH. BED ALARM IN PLACE. PATIENT DENIES ANY DIZZINESS, DENIES ANY PAIN AND DISCOMFORT.
--- NOTE | 2016-07-07 02:00 | NUR ---
RN NOTES AT 0135, HEARD BED ALARM SOUNDING OFF DOWN THE HALLWAY, NURSES CAME TO PATIENT'S AID. UPON REACHING THE PATIENT'S ROOM, PATIENT FOUND KNEELING DOWN ON THE SIDE OF THE BED. PATIENT WITH NO CHANGE IN CONSCIOUSNESS NOTED, PATIENT OBSERVED TO BE INDIFFERENT AND REFUSES ANY HELP FROM NURSES. DENIES ANY PAIN AND DISCOMFORT; PATIENT EVEN DENIES FALLING DOWN AND/OR WEAKNESS. STRONGLY REFUSES HELP GETTING UP, AGITATION OBSERVED. EXPLAINED TO PATIENT THAT SHE JUST FELL DOWN AND PROVIDED SAFETY PRECAUTIONS AND FALL PRECAUTIONS TO PATIENT, PATIENT OBSERVED TO BE AGITATED AND STILL REFUSES HELP. 2 NURSES ASSISTED PATIENT BACK TO BED; DURING ASSISTANCE BACK TO BED, PATIENT OBSERVED TO BE WITH BLE WEAKNESS. FURTHER ASSESSMENT MADE, PATIENT DENIES HITTING ANY BODY PART, DENIES DIZZINESS; BODY CHECK DONE, NO REDNESS AND NO BRUISING NOTED. PER PATIENT'S RECOLLECTION OF EVENT, PATIENT WAS TRYING TO GET TO THE BATHROOM, GOT OUT FROM BED AND PER PATIENT "I KNEELED DOWN BY MYSELF, NOONE FELL DOWN." PATIENT STILL INSISTING TO GO TO THE BATHROOM, PATIENT ALREADY WEARING DIAPER, EXPLAINED TO PATIENT WEAKNESS NOTED; EXPLAINED USE OF DIAPER AND OFFERED TO PATIENT USE OF BEDPAN AND/OR COMMODE FOR SAFETY AND FALL PRECAUTION. PATIENT STRONGLY REFUSED USE OF BEDPAN NOR COMMODE. INSISTED TO GO TO BATHROOM. REINFORCED TO PATIENT FALL AND SAFETY PRECAUTIONS, ENCOURAGE TO CALL NURSES FOR ASSISTANCE AT ALL TIMES. PATIENT EVENTUALLY AGREED WITH USE OF BEDPAN. ASSISTED PATIENT NEEDED. PRIVACY PROVIDED. NO URINE PRODUCED BY PATIENT WITH USE OF BEDPAN, PATIENT'S DIAPER IS DRY. PATIENT KEPT CLEAN AND DRY. PERICARE PROVIDED. BED ALARM IN PLACE, CALL LIGHT WITHIN REACH. NURSE TO KEEP CLOSE VISUAL MONITORING ON PATIENT AT ALL TIMES. VS: SUPINE = 95/61, SITTING = 92/60, 75, SR, 98.6 AT 0140, DR. SANCHEZ WAS PAGED TO NOTIFY OF THE FALL INCIDENT, AWAITING CALL BACK. AT 0150, NURSING DIGITAL PRINTER NOTIFIED OF THE FALL INCIDENT. REQUESTED SITTER FOR THE PATIENT. Addendum: 07/07/16 at 0339 by SARAY MENCHACA RN AT 0130, CLINICAL DATA COORDINATOR MADE ROUNDS. CLINICAL DATA COORDINATOR INQUIRED TO PATIENT IF SHE NEEDS ANY ASSISTANCE AND NEED ANYTHING. PATIENT RESPONDED TO CLINICAL DATA COORDINATOR "I DON'T NEED ANYTHING, JUST CLOSE MY DOOR." NOTED.
--- NOTE | 2016-07-07 03:05 | NUR ---
RN NOTES PATIENT IN BED, RESTING COMFORTABLY. EYES CLOSED, EASILY AROUSABLE WITH VERBAL AND TACTILE STIMULI. NO DISTRESS. BED ALARM IN PLACE, SIDE RAILS UP. ON CLOSE VISUAL MONITORING. CALL LIGHT IN REACH.
--- NOTE | 2016-07-07 03:23 | NUR ---
RN NOTES DR. SANCHEZ CALLED BACK, INFORMED OF THE DETAILED INCIDENT OF THE EVENT. NNO GIVEN. PATIENT AT THIS TIME IS SLEEPING SOUNDLY IN BED, SR AT 75. NO DISTRESS NOTED. 3LPM OF O2 VIA NC IN PLACE. ON CLOSE VISUAL MONITORING.
[2016-07-07 04:00] VITALS: BP 98/53
--- NOTE | 2016-07-07 06:48 | NUR ---
RN NOTES PATIENT IN BED, SLEEPING COMFORTABLY, PATIENT IS EASILY AROUSABLE WITH VERBAL AND TACTILE STIMULI. PATIENT OBSERVED TO BE AGITATED WHENEVER SOMEONE GOES INSIDE THE ROOM, YELLS IN FRISIAN THAT SHE WANTS TO BE LEFT ALONE AND SHE WANTS TO SLEEP. PATIENT STRONGLY REFUSED BLOOD DRAW AND AM CARE. EXPLAINED RISKS AND BENEFITS X3 TO NO AVAIL. CN NOTIFIED. PATIENT'S SAFETY AND COMFORT ENSURED. PATIENT WITH CLOSE VISUAL MONITORING AT ALL TIMES, NURSE BY THE ROOM FOR CLOSE MONITORING. BED ALARM IN PLACE, BED IN LOW AND LOCKED POSITION. CALL LIGHT IN REACH. WILL ENDORSE ACCORDINGLY FOR CONTINUITY OF CARE.
[2016-07-07] MEDS: BLOOD SUGAR DIAGNOSTIC 1 EACH STRIP IN SCH ×4 (07:30→22:42)
[2016-07-07 08:00] VITALS: BP 116/50
--- NOTE | 2016-07-07 08:19 | NUR ---
RN NOTES PT REFUSED AM LABS, THIS IS THE 2ND ATTEMPT
[2016-07-07] MEDS: CARVEDILOL 12.5 MG TABLET PO SCH ×2 (09:00→16:51)
[2016-07-07] MEDS: AMLODIPINE BESYLATE 5 MG TABLET PO SCH ×2 (09:00→16:52)
[2016-07-07] MEDS: NIFEdipine XL (30MG) 30 MG TAB PO SCH (09:00)
[2016-07-07] MEDS: ISOSORBIDE DINITRATE (20MG) 20 MG TABLET PO SCH ×2 (11:30→17:31)
[2016-07-07] MEDS: hydrALAZINE HCL 50 MG TABLET PO SCH ×3 (11:30→16:51)
[2016-07-07] MEDS: ASPIRIN EC 81 MG TABLET.DR PO SCH (11:30)
[2016-07-07] MEDS: LINAGLIPTIN 5 MG TABLET PO SCH (11:31)
[2016-07-07] MEDS: DIVALPROEX SODIUM 125 MG TABLET.DR PO SCH ×2 (11:31→21:23)
[2016-07-07] MEDS: FUROSEMIDE 40 MG TABLET PO SCH (11:31)
[2016-07-07] MEDS: PANTOPRAZOLE 40 MG TABLET.DR PO SCH (11:31)
[2016-07-07] MEDS: CLONIDINE HCL 0.1 MG TABLET PO SCH ×3 (11:32→16:50)
[2016-07-07] MEDS: ENALAPRIL MALEATE (10 MG) 10 MG TABLET PO SCH ×3 (11:33→16:51)
[2016-07-07 12:00] VITALS: BP 108/57
[2016-07-07] MEDS: INSULIN REGULAR, HUMAN 100 UNIT/ML 3 ML VIAL SQ PRN (13:33)
[2016-07-07 16:00] VITALS: BP 121/63
--- NOTE | 2016-07-07 17:00 | NUR ---
RN NOTES SPOKE WITH DR SANCHEZ REGARDING PT REFUSING MEDS AND CARE, PER PT HAS PSYCH CONSULT WITH DR GUTIERREZ, CALLED AND LEFT A MESSAGE TO DR GUTIERREZ
--- NOTE | 2016-07-07 18:52 | NUR ---
RN NOTES SPOKE WITH DR GUTIERREZ, MAURIZIO RAGRADING PT'S BEHAVIOR, REGUSING MEDS AND CARE. PT AGITATED AND STRIKING OUT DUING CARE, PER MD TO HAVE TABLEAU ARCHITECT PSYCHIATRIST COME AND SEE THE PT.
[2016-07-07 20:00] VITALS: BP 120/62
[2016-07-07 20:23] LABS: BASOPHILS # (AUTO) 0.1 /CMM (0.0-0.2); BASOPHILS % (AUTO) 0.7 % (0.0-2.0); EOSINOPHILS # (AUTO) 0.5 /CMM (0.0-0.7); EOSINOPHILS % (AUTO) 5.3 % (0.0-6.0); HEMATOCRIT 30 % (33-45); HEMOGLOBIN 9.6 g/dL (11.5-14.8); LYMPHOCYTES # (AUTO) 1.7 /CMM (0.8-4.8); MEAN CORPUSCULAR HEMOGLOBIN 29 PG (26.0-33.0); MEAN CORPUSCULAR HGB CONC 33 g/dl (31.0-36.0); MEAN CORPUSCULAR VOLUME 88 fL (82-100); MONOCYTES # (AUTO) 1.1 /CMM (0.1-1.30); MONOCYTES % (AUTO) 10.7 % (2.0-12.0); NEUTROPHILS # (AUTO) 6.5 /CMM (1.8-8.9); NEUTROPHILS % (AUTO) 66.3 % (43.0-81.0); PLATELET COUNT (AUTO) 332 /CMM (150-450); RDW COEFFICIENT OF VARIATION 15.7 (11.5-15.0); RED BLOOD CELL COUNT(AUTO) 3.33 MIL/uL (4.0-5.2); WHITE BLOOD COUNT (AUTO) 9.8 K/uL (4.3-11.0)
[2016-07-07 20:24] LABS: CREATININE 3.7 mg/dL (0.6-1.3); MAGNESIUM 1.7 mg/dL (1.8-2.4); POTASSIUM 4.3 mmol/L (3.5-5.1)
[2016-07-07] MEDS: ATORVASTATIN 10 MG TABLET PO SCH (21:24)
[2016-07-07] MEDS: ENOXAPARIN SODIUM 30 MG/0.3 ML DISP.SYRIN SQ SCH (21:25)
[2016-07-08] VITALS (8 sets, daily range): BP systolic 115–178; BP diastolic 68–81
[2016-07-08] MEDS: BLOOD SUGAR DIAGNOSTIC 1 EACH STRIP IN SCH ×4 (07:30→21:50)
[2016-07-08] MEDS: PANTOPRAZOLE 40 MG TABLET.DR PO SCH (07:30)
--- NOTE | 2016-07-08 08:00 | NUR ---
TELE1/RN AM SHIFT INITIAL NOTES RECEIVED PT ASLEEP IN BED, AROUSEABLE, ALERT X 1-2, FORGETFUL. ON 3L O2 VIA N/C SATURATING @ 97%, LUNG SOUNDS CLEAR. ON TELE WITH SINUS RHYTHM, HR 73. WITH SITTER AT BEDSIDE. PT REFUSED TO HAVE VITALS TAKEN. VERY COMBATIVE, REFUSED AM MEDS WELL. NO ACUTE CHANGE OF CONDITION NOTED. CL WITHIN REACHED REACHED AND SAFETY MAINTAINED. ON GOING MONITORING.
[2016-07-08] MEDS: CLONIDINE HCL 0.1 MG TABLET PO SCH ×3 (09:00→16:21)
[2016-07-08] MEDS: AMLODIPINE BESYLATE 5 MG TABLET PO SCH ×2 (09:00→16:20)
[2016-07-08] MEDS: hydrALAZINE HCL 50 MG TABLET PO SCH ×3 (09:00→16:20)
[2016-07-08] MEDS: DIVALPROEX SODIUM 125 MG TABLET.DR PO SCH ×2 (09:00→21:40)
[2016-07-08] MEDS: NIFEdipine XL (30MG) 30 MG TAB PO SCH (09:00)
[2016-07-08] MEDS: CARVEDILOL 12.5 MG TABLET PO SCH ×2 (09:00→16:21)
[2016-07-08] MEDS: ASPIRIN EC 81 MG TABLET.DR PO SCH (09:00)
[2016-07-08] MEDS: ISOSORBIDE DINITRATE (20MG) 20 MG TABLET PO SCH ×2 (09:00→16:23)
[2016-07-08] MEDS: LINAGLIPTIN 5 MG TABLET PO SCH (09:00)
[2016-07-08] MEDS: ENALAPRIL MALEATE (10 MG) 10 MG TABLET PO SCH ×3 (09:00→16:20)
--- NOTE | 2016-07-08 10:40 | NUR ---
MS1/RN ROUNDS - DR. HENDERSON PT SEEN & EXAMINED BY DR. HENDERSON. BP TO BE REACHED, MANUALLY.
--- NOTE | 2016-07-08 11:00 | NUR ---
MS1/RN ROUNDS - DR. SANCHEZ UPDATED PT'S CONDITION, NOTIFIED HIM THAT PT IS REFUSING BLOOD DRAWS, MEDICATIONS AND VITAL SIGNS.
--- NOTE | 2016-07-08 12:00 | NUR ---
MS1/RN NOON ROUNDS PT CONTINUED TO SLEEP AROUSABLE. BUT ONCE AWAKEN BECOMES COMBATIVE. PT REFUSED BREAKFAST AND LUNCH. REFUSED MEDICATIONS WELL. BS CHECKED 135. PT IS ALERT VERBALIZED "IS NOT YOUR BUSINESS TO BOTHER ME" BECOMES AGITATED WHEN BEING CHECKED UP ON. MONITORING CONTINUED.
--- NOTE | 2016-07-08 15:00 | NUR ---
MS1/RN AFTERNOON ROUNDS PT ASLEEP BUT CAN BE AWAKEN, ASKED IF SHE WANTED TO EAT, AGAIN REFUSED SAID TO STAY AWAY FROM HER. MONITORING.
--- NOTE | 2016-07-08 16:30 | NUR ---
MS1/RN UPDATE - DR. SANCHEZ SPOKE TO DR. SANCHEZ NOTIFY HIM THAT PT HAS REFUSED BOTH SCHEDULED MEDICATION IN THE MORNING & NOON, BREAKFAST AND LUNCH. BP CHECKED NOW 178/81, HR 77, BS CHECKED 120. PT DENIES ANY SYMPTOMS. NO NEW ORDERS RECEIVED. WILL CONVINCE PT TO TAKE HER PM BP MEDS. MONITORING. Addendum: 07/08/16 at 1830 by SILVESTRE CHAVIRA RN ADDENDUM: PT FINALLY AGREED TO TAKE HER BP MEDS AND IS EATING HER LUNCH TRAY. WILL RE-CHECK BP. MONITORING CONTINUED.
--- NOTE | 2016-07-08 19:17 | NUR ---
MS1/RN AM SHIFT END NOTES BP DECREASED 137/68, HR 71. PT FINALLY ALLOWED OPERATIONS TRAINER TO PROVIDE PM CARE. PT IS COMFORTABLE. ALL NEEDS MET. PT ENDORSED TO PM NURSE TO CONTINUE CARE. CL WITHIN REACHED AND SAFETY MAINTAINED.
[2016-07-08] MEDS: ENOXAPARIN SODIUM 30 MG/0.3 ML DISP.SYRIN SQ SCH ×2 (21:00→21:42)
[2016-07-08] MEDS: ATORVASTATIN 10 MG TABLET PO SCH (21:40)
--- NOTE | 2016-07-08 21:50 | NUR ---
RN NOTES: PATIENT REFUSED ACCU-CHECK. WILL CONTINUE TO MONITOR.
[2016-07-09 04:00] VITALS: BP 151/68
--- NOTE | 2016-07-09 06:26 | NUR ---
RN NOTES: PATIENT REFUSED BLOOD DRAW AND ACCU-CHECK. WILL ENDORSE IT TO AM SHIFT NURSE TO CONTINUE THE CARE.
--- NOTE | 2016-07-09 07:20 | NUR ---
RN INITIAL NOTES: Rec'd pt asleep on bed, not in any distress, A/O x2. On O2 at 3lpm/NC, saturating at 99%. Pt has L hand G22, SL, flushed, patent & intact w/ no signs of infection/ infiltration. Provided comfort & safety measures. Call light placed w/in reach. Bed kept low & in locked position. Will continue to monitor.
[2016-07-09] MEDS: BLOOD SUGAR DIAGNOSTIC 1 EACH STRIP IN SCH ×4 (07:54→21:51)
[2016-07-09 08:00] VITALS: BP 145/73
[2016-07-09 08:21] LABS: BASOPHILS # (AUTO) 0.1 /CMM (0.0-0.2); BASOPHILS % (AUTO) 0.7 % (0.0-2.0); EOSINOPHILS # (AUTO) 0.6 /CMM (0.0-0.7); EOSINOPHILS % (AUTO) 6.3 % (0.0-6.0); HEMATOCRIT 32 % (33-45); HEMOGLOBIN 10.4 g/dL (11.5-14.8); LYMPHOCYTES # (AUTO) 2.1 /CMM (0.8-4.8); LYMPHOCYTES % (AUTO) 22.2 % (20.0-44.0); MEAN CORPUSCULAR HEMOGLOBIN 28 PG (26.0-33.0); MEAN CORPUSCULAR HGB CONC 32 g/dl (31.0-36.0); MEAN CORPUSCULAR VOLUME 88 fL (82-100); MONOCYTES # (AUTO) 0.9 /CMM (0.1-1.30); MONOCYTES % (AUTO) 9.5 % (2.0-12.0); NEUTROPHILS # (AUTO) 5.9 /CMM (1.8-8.9); NEUTROPHILS % (AUTO) 61.3 % (43.0-81.0); PLATELET COUNT (AUTO) 331 /CMM (150-450); RDW COEFFICIENT OF VARIATION 15.4 (11.5-15.0); RED BLOOD CELL COUNT(AUTO) 3.66 MIL/uL (4.0-5.2); WHITE BLOOD COUNT (AUTO) 9.6 K/uL (4.3-11.0)
[2016-07-09 08:37] LABS: ALBUMIN 2.6 g/dL (3.4-5.0); BILIRUBIN,TOTAL 0.4 mg/dL (0.2-1.0); CALCIUM, SERUM 8.5 mg/dL (8.5-10.1); CREATININE 2.9 mg/dL (0.6-1.3); MAGNESIUM 1.8 mg/dL (1.8-2.4); PHOSPHORUS 4.2 mg/dL (2.5-4.9); POTASSIUM 3.9 mmol/L (3.5-5.1); TOTAL PROTEIN, SERUM 6.8 g/dL (6.4-8.2)
[2016-07-09] MEDS: LINAGLIPTIN 5 MG TABLET PO SCH (09:21)
[2016-07-09] MEDS: ASPIRIN EC 81 MG TABLET.DR PO SCH (09:21)
[2016-07-09] MEDS: PANTOPRAZOLE 40 MG TABLET.DR PO SCH (09:21)
[2016-07-09] MEDS: DIVALPROEX SODIUM 125 MG TABLET.DR PO SCH ×2 (09:21→21:40)
[2016-07-09] MEDS: hydrALAZINE HCL 50 MG TABLET PO SCH ×3 (09:23→17:06)
[2016-07-09] MEDS: CLONIDINE HCL 0.1 MG TABLET PO SCH ×3 (09:24→17:07)
[2016-07-09] MEDS: CARVEDILOL 12.5 MG TABLET PO SCH ×2 (10:43→17:06)
[2016-07-09] MEDS: NIFEdipine XL (30MG) 30 MG TAB PO SCH (10:43)
[2016-07-09] MEDS: AMLODIPINE BESYLATE 5 MG TABLET PO SCH ×2 (10:44→17:07)
[2016-07-09] MEDS: ENALAPRIL MALEATE (10 MG) 10 MG TABLET PO SCH ×3 (10:44→17:07)
[2016-07-09] MEDS: ISOSORBIDE DINITRATE (20MG) 20 MG TABLET PO SCH ×2 (10:44→17:07)
[2016-07-09] MEDS: INSULIN REGULAR, HUMAN 100 UNIT/ML 3 ML VIAL SQ PRN ×2 (12:22→17:31)
[2016-07-09 16:00] VITALS: BP 143/69
--- NOTE | 2016-07-09 16:09 | NUR ---
RN NOTES CALLED DR KING, LEFT A MESSAGE TO FOLLOW UP PT FOR PSYCH EVAL. AWAITING FOR CALL BACK.
--- NOTE | 2016-07-09 19:25 | NUR ---
RN CLOSING NOTES: No acute changes noted w/in shift. No desaturation, no SOB, no LOC noted. L hand G22, SL, kept patent & intact w/ no signs of infection/ infiltration. Kept well rested. Call light placed w/in reach. Bed kept low & in locked position. Followed up w/ Dr. Kaur re: clonidine patch that Dr. Ramos suggested. Awaiting response. Endorsed to PM RN for KAIA.
--- NOTE | 2016-07-09 19:40 | NUR ---
RN NOTES RECEIVED PT ASLEEP WELL ON BED WITH PERIODS OF FORGETFUL, FEAR AND SADNESS .WHEN AWAKE .BREATHING EVEN AND UNLABORED. NO ACUTE RESP DISTRESS TOLERATED O2 2LPM VIA NC. WARMTH TO TOUCH. AFEBRILE. IV SITE N LEFT HAND G 22 INTACT AND PATENT. KEPT PT CLEAN AND DRY. BED IN LOCKED AND IN LOWEST POSSIBLE POSITION GÉNESIS LIGHT KEPT WITHIN EASY REACH. CONTINUE TO MONITOR.
[2016-07-09] MEDS: ATORVASTATIN 10 MG TABLET PO SCH (21:40)
[2016-07-09] MEDS: ENOXAPARIN SODIUM 30 MG/0.3 ML DISP.SYRIN SQ SCH (21:51)
[2016-07-10 04:00] VITALS: BP 148/64
--- NOTE | 2016-07-10 06:59 | NUR ---
RN NOTES PT AWAKE AT THIS TIME. ENCOURAGED TO STAND FOR BATHROOM AND TO CHECKED WEIGHT BUT PT JUST WANTED TO BE ON BED.PT REMAINED IN STABLE CONDITION THROUGHOUT THE SHIFT NO ACUTE RESP DISTRESS. ALL NEEDS ATTENDED. KEPT PT CLEAN AND DRY INCONTINENT CARE RENDERED. KEPT PT CLEAN AND COMFORTABLE IN BED. WILL ENDORSED CONTINUITY OF CARE TO AM NURSE.
[2016-07-10 08:00] VITALS: BP 145/73
--- NOTE | 2016-07-10 08:00 | NUR ---
RN INITIAL NOTES PT AOX2, CALM, COOPERATIVE, REFUSED MORNING INSULIN, BUT TOOK OTHER SCHEDULED MEDS, ON O2 3 L/MIN, NO SOB, LUNGS CLEAR, DIMINISHED, DENIES PAIN, NO FEVER, SKIN INTACT, ON CARDIAC DIET, MEAL INTAKE 25% FLUID INTAKE ENCOURAGED, NO EDEMA, SKIN COLOR WNL, WARM AND DRY, VS STABLE, ABLE TO WALK TO THE BATHROOM WITH FWW AND 1 PERSON ASSISTANCE, PT TURNING AND REPOSITION ENCOURAGED, KEPT CLEAN AND DRY. SAFETY MAINTAINED BED IN LOW AND LOCKED POSITION, BED ALARM ON, CALL LIGHT WITHIN REACH. EDUCATION TO PT PROVIDED ,VERBALIZED UNDERSTANDING, LABS WNL.
[2016-07-10] MEDS: BLOOD SUGAR DIAGNOSTIC 1 EACH STRIP IN SCH ×2 (08:23→12:26)
[2016-07-10] MEDS: PANTOPRAZOLE 40 MG TABLET.DR PO SCH (08:48)
[2016-07-10] MEDS: hydrALAZINE HCL 50 MG TABLET PO SCH ×2 (08:49→12:26)
[2016-07-10] MEDS: ASPIRIN EC 81 MG TABLET.DR PO SCH (08:49)
[2016-07-10] MEDS: CLONIDINE HCL 0.1 MG TABLET PO SCH ×2 (08:50→12:25)
[2016-07-10] MEDS: CARVEDILOL 12.5 MG TABLET PO SCH (08:50)
[2016-07-10] MEDS: DIVALPROEX SODIUM 125 MG TABLET.DR PO SCH (08:50)
[2016-07-10] MEDS: NIFEdipine XL (30MG) 30 MG TAB PO SCH (08:51)
[2016-07-10] MEDS: LINAGLIPTIN 5 MG TABLET PO SCH (08:51)
[2016-07-10] MEDS: ISOSORBIDE DINITRATE (20MG) 20 MG TABLET PO SCH (08:51)
[2016-07-10] MEDS: AMLODIPINE BESYLATE 5 MG TABLET PO SCH (08:51)
[2016-07-10] MEDS: ENALAPRIL MALEATE (10 MG) 10 MG TABLET PO SCH ×2 (08:52→12:26)
--- NOTE | 2016-07-10 09:00 | NUR ---
RN NOTES PT AOX2, COOPERATIVE, CALM, ENCOURAGED TO GO TO THE BATHROOM, REFUSED INSULIN, RISKS AND BENEFITS EXPLAINED, STILL REFUSED.
[2016-07-10 12:26] VITALS: BP 137/70
[2016-07-10] MEDS: INSULIN REGULAR, HUMAN 100 UNIT/ML 3 ML VIAL SQ PRN (12:33)
[2016-07-10 12:35] LABS: CREATININE, URINE 81.3 MG/DL (30.0-125.0); URINE TOTAL PROTEIN 299.1 mg/dL (0-11.9)
--- NOTE | 2016-07-10 12:43 | NUR ---
RN NOTES PT REFUSES INSULIN INJECTIONS, BG 205 MG /DL, RISKS AND BENEFITS EXPLAINED PT STILL REFUSED, DR SANCHEZ AWARE.
[2016-07-10 12:48] LABS: APPEARANCE,URINE CLEAR (CLEAR); BILIRUBIN,URINE NEGATIVE (NEGATIVE); BLOOD, URINE NEGATIVE Ery/uL (NEGATIVE); COLOR,URINE YELLOW (YELLOW); KETONES,URINE NEGATIVE (NEGATIVE); LEUKOCYTE ESTERASE ,URINE NEGATIVE (NEGATIVE); NITRITE, URINE NEGATIVE (NEGATIVE); PROTEIN,URINE 3+ mg/dl (NEGATIVE); UGLUCOSE TRACE mg/dL (NEGATIVE); UROBILINOGEN,URINE 0.2 EU/dL (0.2)
[2016-07-10 13:10] LABS: ADD URINE CULTURE NO; BACTERIA,URINE None seen /HPF (None Seen); HYALINE CASTS, URINE Few /LPF (None Seen); RBC,URINE NONE SEEN /HPF (0-2); SQUAMOUS EPITHELIAL CELL,UR Few /HPF (None Seen); WBC,URINE 0-2 /HPF (0-3); YEAST,URINE Rare /HPF (None Seen)
[2016-07-10 13:46] LABS: EOSINOPHIL,URINE None Seen
--- NOTE | 2016-07-10 16:30 | NUR ---
RN NOTE PT DISCHARGED TO [facility] / [facility], VIA AMBULANCE, IN STABLE CONDITION, REPORT GIVEN TO TEOFILO BARRY, BELONGING LIST SIGNED, BELONGINGS GIVEN TO PT, EXIT CARTE DONE, DISCHERGE INSTRUCTIONS GIVEN, SIGNED, MEDICATION LIST PROVIDE, ID AND IV REMOVED.
== END 2016-07-10 16:42 | DRG 280 ==
LOC: ER 09:40 → TELE1 13:43 → MEDSG1 07-08 10:41
PROVIDERS: ADMIT Legal Medicine; ATTEND Legal Medicine
DX: I13.0 Hypertensive heart and chronic kidney disease with heart failure and stage 1 through stage 4 chronic kidney disease, or unspecified chronic kidney disease (principal); I21.4 Non-ST elevation (NSTEMI) myocardial infarction; G93.40 Encephalopathy, unspecified; I50.23 Acute on chronic systolic (congestive) heart failure; N17.0 Acute kidney failure with tubular necrosis; N18.4 Chronic kidney disease, stage 4 (severe); E11.22 Type 2 diabetes mellitus with diabetic chronic kidney disease; E78.5 Hyperlipidemia, unspecified; R56.9 Unspecified convulsions; G30.9 Alzheimer's disease, unspecified; F02.80 Dementia in other diseases classified elsewhere, unspecified severity, without behavioral disturbance, psychotic disturbance, mood disturbance, and anxiety; F29 Unspecified psychosis not due to a substance or known physiological condition; F01.50 Vascular dementia, unspecified severity, without behavioral disturbance, psychotic disturbance, mood disturbance, and anxiety; Z79.84 Long term (current) use of oral hypoglycemic drugs; Z87.440 Personal history of urinary (tract) infections; Z91.19 Patient's noncompliance with other medical treatment and regimen
CPT/HCPCS: 36415; 71010-TC; 80048-TC; 80053-TC; 80061-TC; 80076-TC; 81000-TC; 82570-TC; 82962-TC; 83735-TC; 83880; 84100-TC; 84155-TC; 84300-TC; 84484-TC; 85025-TC; 85730-TC; 87081-TC; 92611-TC; 93307-TC; 94799-TC; 97001-TC; A4216; A4606; J1650; J1815; J1940; J3490; Z7610

== ENCOUNTER 2016-08-07 18:23 | Inpatient (IN) | payer MEDICARE, OTHER ==
[~2016-08-07] VITALS: Ht 162.6 cm; Wt 52.4 kg
[~2016-08-07 18:23] MED LIST changes: -CLON-418 PO; +DIVA125T2 PO; +ENAL10TA PO; -FURO-145 PO; +INSU100V26 SQ; +LINA5TAB PO; +LORA0.5T PO; +MAG30ORA PO; -MAGN400O6 PO; -MULT-659 PO; -OLAN5TAB3 PO; -SITA50TA PO
--- NOTE | 2016-08-07 18:25 | NUR ---
PT IDALIA FROM [facility]: NAUSEA, VOMITING, ABD PAIN SINCE AM. PLACED ON MONITOR. VSS. AWAITING MD ORDER. GOWNED PT MADE COMFORTABLE.
--- NOTE | 2016-08-07 18:49 | NUR ---
CALLED NURSING SUP. FOR MS BED
[2016-08-07] MEDS ORDERED: IV NS 0.9% 1,000 ML BAG IV ONE (19:00)
[2016-08-07] MEDS ORDERED: ONDANSETRON HCL/PF 4 MG/2 ML VIAL IVP ONE (19:00)
[2016-08-07] MEDS ORDERED: IV SET PRIMARY PUMP SET 1 EA INFUS.SET MC ONE (19:02)
[2016-08-07] MEDS ORDERED: IV NS 0.9% 1,000 ML ONE (19:02)
[2016-08-07] MEDS ORDERED: ONDANSETRON HCL/PF 4 MG/2 ML VIAL ONE (19:02)
[2016-08-07 19:10] LABS: BASOPHILS # (AUTO) 0.1 /CMM (0.0-0.2); BASOPHILS % (AUTO) 1.4 % (0.0-2.0); EOSINOPHILS # (AUTO) 0.1 /CMM (0.0-0.7); EOSINOPHILS % (AUTO) 1.5 % (0.0-6.0); HEMATOCRIT 38 % (33-45); LYMPHOCYTES # (AUTO) 1.1 /CMM (0.8-4.8); LYMPHOCYTES % (AUTO) 18.4 % (20.0-44.0); MEAN CORPUSCULAR HEMOGLOBIN 30 PG (26.0-33.0); MEAN CORPUSCULAR HGB CONC 34 g/dl (31.0-36.0); MEAN CORPUSCULAR VOLUME 89 fL (82-100); MONOCYTES # (AUTO) 0.3 /CMM (0.1-1.30); MONOCYTES % (AUTO) 5.7 % (2.0-12.0); NEUTROPHILS # (AUTO) 4.4 /CMM (1.8-8.9); PLATELET COUNT (AUTO) 462 /CMM (150-450); RDW COEFFICIENT OF VARIATION 13.6 (11.5-15.0); RED BLOOD CELL COUNT(AUTO) 4.32 MIL/uL (4.0-5.2)
--- NOTE | 2016-08-07 19:11 | NUR ---
CIRCULAR TANK [employer]OPER AT BEDSIDE
--- NOTE | 2016-08-07 19:15 | NUR ---
Assumed care of pt. pt lying in bed w/ resp even & unlabored, nad noted, on continuous monitoring w/ IV flds continue to be infusing. pt sent to CT.
--- NOTE | 2016-08-07 19:19 | NUR ---
GAVE REPORT TO JENNIFER FOR [facility]
--- NOTE | 2016-08-07 19:19 | NUR ---
SON SUSAN [phone] DAUGHTER SILVINO [phone]
[2016-08-07] MEDS ORDERED: SENN8.6T6 PO (19:23)
[2016-08-07] MEDS ORDERED: DOCU-170 PO (19:23)
[2016-08-07] MEDS ORDERED: NA P133E RC (19:23)
[2016-08-07] MEDS ORDERED: ASPI81TA2 PO (19:23)
[2016-08-07] MEDS ORDERED: BISA10SU8 RC (19:23)
[2016-08-07] MEDS ORDERED: NIFE60TA2 PO (19:23)
[2016-08-07] MEDS ORDERED: ISOS40TA16 PO (19:23)
[2016-08-07] MEDS ORDERED: MAGN400O6 PO (19:23)
[2016-08-07 19:30] LABS: ALBUMIN 3.3 g/dL (3.4-5.0); BILIRUBIN,DIRECT 0.1 mg/dL (0.0-0.2); BILIRUBIN,TOTAL 0.6 mg/dL (0.2-1.0); CALCIUM, SERUM 9.3 mg/dL (8.5-10.1); CREATININE 2.6 mg/dL (0.6-1.3); INR 0.97 (0.87-1.13); PROTHROMBIN TIME 10.1 SECS (9.5-12.7); TOTAL PROTEIN, SERUM 7.9 g/dL (6.4-8.2)
[2016-08-07 19:33] LABS: TROPONIN I 0.086 ng/mL (0.00-0.056)
--- NOTE | 2016-08-07 19:40 | NUR ---
pt back fr CT w/ resp even & unlabored, no active N/V w/ nad noted. On continuous monitoring.
[2016-08-07] MEDS ORDERED: ASPIRIN 81 MG TAB.CHEW ONE (20:16)
--- NOTE | 2016-08-07 20:24 | NUR ---
PO aspirin given as ordered
--- NOTE | 2016-08-07 20:25 | NUR ---
report given to the floor; accepted by [facility].
[2016-08-07] MEDS ORDERED: ASPIRIN 81 MG TAB.CHEW PO ONE (20:30)
--- NOTE | 2016-08-07 20:40 | NUR ---
PRIMARY SPECIAL EDUCATION TEACHER NOTE RECEIVED PATIENT FROM ER VIA GURNEY, PATIENT IS ALERT AND ORIENTEDX2, BED REST, NO S/S OF RESPIRATORY DISTRESS OR PAIN AT THIS TIME. IV ON RIGHT FA IS PATENT AND INTACT. SKIN IS INTACT AND DRY ALSO. WILL CONNECT TO TELE MONITOR. SRX2, BED IN LOW POSITION, CALL LIGHT WITHIN REACH, WILL CONTINUE TO MONITOR PATIENT.
[2016-08-07] MEDS ORDERED: ACETAMINOPHEN 650 MG/SUPP.RECT RC PRN (23:00)
[2016-08-07] MEDS ORDERED: Z GUARD REMEDY 2 OZ OINT TP PRN (23:00)
[2016-08-07] MEDS ORDERED: NITROGLYCERIN PACKET 1 GM PACKET TOP PRN (23:00)
[2016-08-07] MEDS ORDERED: IV D5W 50 ML IV ONE (23:04)
[2016-08-07] MEDS ORDERED: PIPERACILLIN /TAZOBACTAM 2.25 G VIAL IV ONE (23:04)
[2016-08-07] MEDS ORDERED: IV D5/0.45 NACL 1,000 ML IV ONE (23:11)
[2016-08-07] MEDS: IV D5/0.45 NACL 1,000 ML IV PRN (23:15)
[2016-08-07] MEDS: PIPERACILLIN /TAZOBACTAM 2.25 G in IV D5W 50 ML IV SCH (23:16)
[2016-08-07] MEDS ORDERED: SECONDARY IV SET 1 EA INFUS.SET MC ONE (23:18)
--- NOTE | 2016-08-07 23:30 | NUR ---
CONCRETE POINTER NOTE PATIENT'S BP UPON ADMISSION WAS 177/91, HR 90. AT 2300, BP WAS 189/96, HR 90. PATIENT WAS ASYMPTOMATIC. CONTACTED DR GARCIA AND GOT AN ORDER OF HYDRALAZINE 10MG Q4H PRN. ORDERS PUT IN AND WILL CARRY OUT. Addendum: 08/08/16 at 0144 by BENSON CABA RN hydralazine ivp q4h prn.
[2016-08-07] MEDS ORDERED: hydrALAZINE HCL IV 20 MG VIAL ONE (23:47)
[2016-08-07] MEDS: hydrALAZINE HCL IV 20 MG VIAL IV PRN (23:53)
[2016-08-08] VITALS: BP 178/87
[2016-08-08] MEDS ORDERED: NITROGLYCERIN PACKET 1 GM PACKET ONE (00:53)
--- NOTE | 2016-08-08 00:56 | NUR ---
NETWORK ANNOUNCER NOTE PATIENT'S BP IS STILL HIGH OF 178/87 PULSE 97. WILL ADMINISTER NITRO PATCH 1GM.
[2016-08-08] MEDS ORDERED: ONDANSETRON HCL/PF 4 MG/2 ML VIAL ONE (01:55)
[2016-08-08] MEDS: ONDANSETRON HCL/PF 4 MG/2 ML VIAL IVP PRN ×2 (01:59→23:56)
[2016-08-08 04:00] VITALS: BP 158/50
[2016-08-08] MEDS ORDERED: PIPERACILLIN /TAZOBACTAM 2.25 G VIAL IV ONE (04:52)
[2016-08-08] MEDS ORDERED: IV D5W 50 ML IV ONE (04:53)
[2016-08-08] MEDS: PIPERACILLIN /TAZOBACTAM 2.25 G in IV D5W 50 ML IV SCH ×4 (06:13→23:47)
[2016-08-08 07:04] LABS: BASOPHILS # (AUTO) 0.1 /CMM (0.0-0.2); BASOPHILS % (AUTO) 1.6 % (0.0-2.0); EOSINOPHILS # (AUTO) 0.1 /CMM (0.0-0.7); EOSINOPHILS % (AUTO) 2.1 % (0.0-6.0); HEMATOCRIT 32 % (33-45); HEMOGLOBIN 10.8 g/dL (11.5-14.8); LYMPHOCYTES # (AUTO) 1.3 /CMM (0.8-4.8); LYMPHOCYTES % (AUTO) 18.8 % (20.0-44.0); MEAN CORPUSCULAR HEMOGLOBIN 30 PG (26.0-33.0); MEAN CORPUSCULAR HGB CONC 34 g/dl (31.0-36.0); MEAN CORPUSCULAR VOLUME 90 fL (82-100); MONOCYTES # (AUTO) 0.7 /CMM (0.1-1.30); MONOCYTES % (AUTO) 10.1 % (2.0-12.0); NEUTROPHILS # (AUTO) 4.7 /CMM (1.8-8.9); NEUTROPHILS % (AUTO) 67.4 % (43.0-81.0); PLATELET COUNT (AUTO) 388 /CMM (150-450); RDW COEFFICIENT OF VARIATION 14.7 (11.5-15.0); RED BLOOD CELL COUNT(AUTO) 3.58 MIL/uL (4.0-5.2); WHITE BLOOD COUNT (AUTO) 6.9 K/uL (4.3-11.0)
[2016-08-08 07:24] LABS: TROPONIN I 0.111 ng/mL (0.00-0.056)
--- NOTE | 2016-08-08 07:30 | NUR ---
SOLVENT RECOVERER INITIAL NOTE PT IS AWAKE IN BED. A/O X2, COOPERATIVE. SKIN IS INTACT. IV ACCESS ON RT FOREARM WITH D5 1/2 NS RUNNING AT 75 ML/HR. PT IS NPO DUE TO VOMITING. BED IS IN LOW POSITION WITH SIDE RAILS UP. WILL CONTINUE TO MONITOR
--- NOTE | 2016-08-08 07:32 | NUR ---
SUPERVISOR PROCESS TESTING NOTE PATIENT IS RESTING IN BED COMFORTABLY, NO S/S OF RESPIRATORY DISTRESS AND PAIN NOTED. IV ON RIGHT FA IS PATENT AND INTACT, HL ONLY. ENDORSED TO DAY SHIFT FOR KAIA.
[2016-08-08 07:39] LABS: ALBUMIN 2.8 g/dL (3.4-5.0); BILIRUBIN,TOTAL 0.5 mg/dL (0.2-1.0); CALCIUM, SERUM 8.5 mg/dL (8.5-10.1); CREATININE 2.4 mg/dL (0.6-1.3); MAGNESIUM 2.3 mg/dL (1.8-2.4); POTASSIUM 4.2 mmol/L (3.5-5.1); TOTAL PROTEIN, SERUM 6.8 g/dL (6.4-8.2)
--- NOTE | 2016-08-08 07:45 | NUR ---
MS/RN Patient received Patient received from licensed nursing assistant. Appears comfortable, in no distress. No nausea or vomiting noted since being admitted to floor. Call light within reach, side rails X3 in upright position, bed in low setting. Will continue to monitor and ensure safety.
[2016-08-08 08:00] VITALS: BP 193/98
--- NOTE | 2016-08-08 08:01 | NUR ---
MS RN NOTES DR MANSFIELD HAS BEEN NOTIFIED OF HIGH BLOOD PRESSURE AND HOME MEDS BEING DISCONTINUED BY DOCTOR RADHA
[2016-08-08 08:28] LABS: THYROID STIMULATING HORMONE 1.265 uIU/mL (0.358-3.74)
[2016-08-08] MEDS ORDERED: MAGNESIUM HYDROXIDE 30 ML UDC PO PRN (08:30)
[2016-08-08] MEDS ORDERED: BLOOD SUGAR DIAGNOSTIC 1 EACH STRIP IN PRN (08:30)
[2016-08-08] MEDS ORDERED: NA PHOS,M-B/NA PHOS,DI-BA 1 EA ENEMA RC PRN (08:30)
[2016-08-08] MEDS ORDERED: BISACODYL SUPP (10 MG) 10 MG/SUPP.RECT SUPP.RECT RC PRN (08:30)
[2016-08-08] MEDS ORDERED: MAG HYDROX/AL HYDROX/SIMETH 30 ML UDC PO PRN (08:30)
[2016-08-08] MEDS ORDERED: VALPROATE 500 MG in IV D5W 100 ML IV SCH (09:00)
[2016-08-08] MEDS: ISOSORBIDE DINITRATE (20MG) 20 MG TABLET PO SCH ×2 (09:30→17:00)
[2016-08-08] MEDS: NIFEdipine XL 60 MG TAB PO SCH (09:30)
[2016-08-08] MEDS: ASPIRIN 81 MG TAB.CHEW PO SCH (09:31)
[2016-08-08] MEDS: AMLODIPINE BESYLATE 5 MG TABLET PO SCH ×2 (09:31→17:00)
[2016-08-08] MEDS: CARVEDILOL 12.5 MG TABLET PO SCH ×2 (09:31→17:00)
[2016-08-08] MEDS: LINAGLIPTIN 5 MG TABLET PO SCH (09:31)
[2016-08-08] MEDS: DIVALPROEX SODIUM 125 MG TABLET.DR PO SCH ×2 (09:32→21:00)
[2016-08-08] MEDS: DOCUSATE SODIUM 100 MG CAPSULE PO SCH ×2 (09:32→17:00)
[2016-08-08] MEDS: PANTOPRAZOLE 40 MG VIAL IV SCH (09:32)
[2016-08-08] MEDS: ENALAPRIL MALEATE (10 MG) 10 MG TABLET PO SCH ×3 (09:34→17:00)
[2016-08-08] MEDS: hydrALAZINE HCL 50 MG TABLET PO SCH ×3 (09:34→17:00)
--- NOTE | 2016-08-08 09:45 | NUR ---
MS/RN Hypertension All home medications including blood pressure medications continued by Dr Madrid. Patient refusing to open mouth and take any pills. Attempting to persuade patient to cooperate without any success. aware.
--- NOTE | 2016-08-08 10:00 | NUR ---
MS/RN Labs reviewed Morning labs reviewed: -H&H 10.8 -Trop 0.111
--- NOTE | 2016-08-08 10:19 | NUR ---
MS/RN S/B Dr Madrid Seen by Dr Madrid - possible non stemi, latest troponin 0.111. 2Decho on last admission within normal limits. Home medications continued, including all of blood pressure medications.
--- NOTE | 2016-08-08 11:00 | NUR ---
MS/RN S/B Dr Kovacs Seen by Dr Kovacs - nausea and vomiting due to possible gastroenteritis. Will schedule for EGD, telephone consent to be obtained from family. Remains NPO for abdominal ultra sound.
--- NOTE | 2016-08-08 11:15 | NUR ---
MS/RN Consent Family called twice to obtain telephone consent for EGD, but no response, voice mail left.
[2016-08-08] MEDS ORDERED: SECONDARY IV SET 1 EA INFUS.SET MC ONE (11:28)
[2016-08-08] MEDS: NITROGLYCERIN 30 GM TUBE TOP PRN (12:23)
--- NOTE | 2016-08-08 12:30 | NUR ---
MS/RN Hypertension Blood pressure remains elevated at 189/88, Dr Mccyo informed. Order given for catapres 0.3mg patch.
[2016-08-08] MEDS: CLONIDINE HCL 0.3 MG/24H PTWK 1 EA PATCH TD SCH (15:41)
[2016-08-08 16:00] VITALS: BP 192/97
--- NOTE | 2016-08-08 16:13 | NUR ---
MS/RN Abdominal US Abdominal ultrasound shows acute cholecystitis, Dr Mccoy made aware of results
--- NOTE | 2016-08-08 16:30 | NUR ---
MS/RN Dr Khari Lucia's office called to inform of abdominal ultrasound result. Message left wit office staff.
[2016-08-08] MEDS: hydrALAZINE HCL IV 20 MG VIAL IV PRN ×2 (18:30→23:57)
--- NOTE | 2016-08-08 18:30 | NUR ---
MS/RN Elevated blood pressure BP remains elevated at 198/100, hydralazine 10mg administered.
--- NOTE | 2016-08-08 19:00 | NUR ---
MS RN CLOSING NOTES PT REMAINS COMFORTABLE, BP ELEVATED. ENDORSED TO COLLECTIONS TECHNICIAN TO FOLLOW UP ON HYDROLADOZE GIVEN AT 1820. FOLLOW UP WITH DAUGHTER FOR CONSENT FOR EGD. WILL HAND OFF REPORT TO COLLECTIONS TECHNICIAN
--- NOTE | 2016-08-08 19:30 | NUR ---
BIOMEDICAL ENGINEERING TECHNOLOGIST NOTES RECEIVED PATIENT IN BED, AWAKE AND VERBALLY RESPONSIVE, NO APPARENT DISTRESS NOTED, NO SOB, DENIES PAIN. IV LINE PATENT INFUSING D51/S NS AT 60CC/HR. PATIENT IS SCHEDULED FOR EGD TOMORROW, COULD NOT REACH RESPONSIBLE REPUBLICAN FOR CONSENT, SEVERAL MESSAGES WERE LEFT. PER DR MATA CALL HIM TOMORROW ONCE PATIENT IS CONSENTED. ALL NEEDS MET, KEPT CLEAN AND DRY. CALL LIGHT WITHIN REACH.
[2016-08-08 20:00] VITALS: BP 166/99
[2016-08-08] MEDS: ATORVASTATIN 10 MG TABLET PO SCH (22:00)
[2016-08-08] MEDS: SENNOSIDES 8.6 MG TABLET PO SCH (22:00)
[2016-08-08] MEDS: IV D5/0.45 NACL 1,000 ML IV PRN (23:47)
[2016-08-09] VITALS (7 sets, daily range): BP systolic 168–199; BP diastolic 88–104
[2016-08-09] MEDS: MORPHINE SULFATE INJ 2 MG/ML DISP.SYRIN IV PRN (00:02)
[2016-08-09] MEDS: METOPROLOL TARTRATE INJ 5 MG/5 ML AMPUL IVP PRN ×3 (01:48→14:16)
--- NOTE | 2016-08-09 03:30 | NUR ---
MIDDLEWARE SYSTEMS ARCHITECT NOTES PATIENT SLEEPING,EASILY AROUSED, IN NO APPARENT DISTRESS, NO SOB DENIES PAIN. PATENT NOTED WITH ELEVATED BP OF 199/104 HR 102, HYDRALAZINE IV GIVEN BP STILL 198/104 1 HOUR AFTER ADMINISTRATION. ADMINISTERED METOPROLOL IV, BP DROPPED TO 166/98. PATIENT IS NPO DUE TO PROCEDURE SCHEDULED IN AM.
[2016-08-09] MEDS: PIPERACILLIN /TAZOBACTAM 2.25 G in IV D5W 50 ML IV SCH ×3 (05:36→18:09)
[2016-08-09] MEDS: NITROGLYCERIN 30 GM TUBE TOP PRN ×2 (06:27→19:21)
[2016-08-09 06:35] LABS: BASOPHILS # (AUTO) 0.1 /CMM (0.0-0.2); BASOPHILS % (AUTO) 1.4 % (0.0-2.0); EOSINOPHILS # (AUTO) 0.1 /CMM (0.0-0.7); HEMATOCRIT 35 % (33-45); HEMOGLOBIN 11.3 g/dL (11.5-14.8); LYMPHOCYTES # (AUTO) 1.1 /CMM (0.8-4.8); LYMPHOCYTES % (AUTO) 15.1 % (20.0-44.0); MEAN CORPUSCULAR HEMOGLOBIN 30 PG (26.0-33.0); MEAN CORPUSCULAR HGB CONC 33 g/dl (31.0-36.0); MEAN CORPUSCULAR VOLUME 90 fL (82-100); MONOCYTES # (AUTO) 0.6 /CMM (0.1-1.30); MONOCYTES % (AUTO) 7.7 % (2.0-12.0); NEUTROPHILS # (AUTO) 5.4 /CMM (1.8-8.9); NEUTROPHILS % (AUTO) 73.8 % (43.0-81.0); PLATELET COUNT (AUTO) 423 /CMM (150-450); RDW COEFFICIENT OF VARIATION 14.2 (11.5-15.0); RED BLOOD CELL COUNT(AUTO) 3.82 MIL/uL (4.0-5.2); WHITE BLOOD COUNT (AUTO) 7.4 K/uL (4.3-11.0)
--- NOTE | 2016-08-09 07:00 | NUR ---
FILLER BLOCK INSERTER REMOVER CLOSING NOTES PATIENT IN BED, NO APPARENT DISTRESS NOTED, NO SOB NOTED, DENIES PAIN. PATIENT NOTED WITH ELEVATED BP MD AWARE. NOTED WITH DISTENDED ABDOMEN, BLADDER SCANNER USED WITH >[address] GARCIA, WITH NEW ORDERS FOR STRAIGHT CATH AND INFORM MD IN MORNING. 900CC DRAINED FROM STRAITH CATH. ALL NEEDS MET, KEPT CLEAN AND DRY.
[2016-08-09 07:11] LABS: ALBUMIN 2.8 g/dL (3.4-5.0); BILIRUBIN,TOTAL 0.6 mg/dL (0.2-1.0); CREATININE 2.2 mg/dL (0.6-1.3); MAGNESIUM 2.2 mg/dL (1.8-2.4); PHOSPHORUS 3.5 mg/dL (2.5-4.9); POTASSIUM 3.9 mmol/L (3.5-5.1); TOTAL PROTEIN, SERUM 7.2 g/dL (6.4-8.2)
[2016-08-09 07:21] LABS: TROPONIN I 0.115 ng/mL (0.00-0.056)
--- NOTE | 2016-08-09 07:30 | NUR ---
MS BARRY INITIAL NOTES RECEIVED REPORT FROM BARKER OPERATOR. PT IS SLEEPING IN BED. NO SIGNS OF SOB. BP REMAINS ELEVATED 182/98 HEART RATE 92. WILL ADMINISTER METROPROLOL. WILL FOLLOW UP WITH CONSENT FOR EGD WITH THE PTS DAUGHTER WILL CONTINUE TO MONITOR.
--- NOTE | 2016-08-09 07:42 | NUR ---
MS RN CONSENT ATTEMPTED TO CONTACT DAUGHTER, SILVINO RUFFIN AT FOR CONSENT FOR EGD. NO RESPONSE, UNABLE TO LEAVE VOICEMAIL.
[2016-08-09] MEDS: hydrALAZINE HCL 50 MG TABLET PO SCH ×3 (07:45→17:00)
[2016-08-09] MEDS: PANTOPRAZOLE 40 MG VIAL IV SCH (07:50)
[2016-08-09] MEDS: DOCUSATE SODIUM 100 MG CAPSULE PO SCH ×2 (07:58→17:00)
[2016-08-09] MEDS: ENALAPRIL MALEATE (10 MG) 10 MG TABLET PO SCH ×3 (07:59→17:00)
[2016-08-09] MEDS: LINAGLIPTIN 5 MG TABLET PO SCH (07:59)
[2016-08-09] MEDS: AMLODIPINE BESYLATE 5 MG TABLET PO SCH ×2 (08:00→17:00)
[2016-08-09] MEDS: NIFEdipine XL 60 MG TAB PO SCH (08:00)
[2016-08-09] MEDS: DIVALPROEX SODIUM 125 MG TABLET.DR PO SCH ×2 (08:00→20:33)
[2016-08-09] MEDS: ISOSORBIDE DINITRATE (20MG) 20 MG TABLET PO SCH ×2 (08:00→17:00)
[2016-08-09] MEDS: CARVEDILOL 12.5 MG TABLET PO SCH ×2 (08:01→17:00)
[2016-08-09] MEDS: ASPIRIN 81 MG TAB.CHEW PO SCH (08:01)
--- NOTE | 2016-08-09 08:04 | NUR ---
MS/RN Hypertension Blood pressure remains elevated at 182/98, metoprolol 5mg given IVP. Will monitor effectiveness.
[2016-08-09] MEDS: ONDANSETRON HCL/PF 4 MG/2 ML VIAL IVP PRN ×2 (13:28→19:26)
--- NOTE | 2016-08-09 13:39 | NUR ---
MS RN CONSENT ATTEMPTED TO CONTACT THE DAUGHTER AGAIN, SILVINO RUFFIN AT FOR CONSENT FOR EGD. NO RESPONSE, UNABLE TO LEAVE VOICEMAIL.
--- NOTE | 2016-08-09 14:30 | NUR ---
MS/setter induction heating equipment Blood pressure remains elevated, metoprolol 5mg given. Will monitor effectiveness.
--- NOTE | 2016-08-09 14:55 | NUR ---
MS RN CONSENT PATIENTS DAUGHTER SILVINO CALLED AND WAS ABLE TO GIVE CONSENT. DR. POND WAS NOTIFIED OF CONSENT GIVEN. AWAITING SCHEDULING OF ECG. WAS ABLE TO GET UPDATED PHONE NUMBERS OF FAMILY SILVINO -DAUGHTER SUSAN -SON
--- NOTE | 2016-08-09 15:06 | NUR ---
MS/RN Blood pressure Patient's blood pressure remains elevated at 198/94, despite metoprolol 5mg being administered. Order given by Dr Mccoy to increase dose to 10mg every 6hrs prn. Pharmacy called and spoke with Julisa. Maximum dose of metoprolol that can be administered at one time is 5mg, and frequency can not be decreased. Dr Mccoy called for second time to inform. Order given to discontinue metoprolol and start labetolol 20mg IV q6hrs prn. New order entered into [facility].
[2016-08-09] MEDS ORDERED: SOD FERRIC GLUC 125 MG in IV NS 0.9% 100 ML IV ONE (16:00)
--- NOTE | 2016-08-09 16:00 | NUR ---
MS/RN Labetolol Pharmacy called as medication still not available.
[2016-08-09] MEDS ORDERED: SECONDARY IV SET 1 EA INFUS.SET MC ONE (16:04)
--- NOTE | 2016-08-09 16:51 | NUR ---
MS/delinquency prevention social worker Dr Mccoy called update as to patient's condition and continuously elevated blood pressure, latest being 198/98. Order given to transfer patient to Tele TD. Charge nurse made aware, nursing dry paste supervisor called for bed.
--- NOTE | 2016-08-09 17:53 | NUR ---
MS/unionmelt operator TD Transfer Patient transfer to TD per Dr Mccoy's order for control of blood pressure. Report given at bedside to Ashley. All medications transferred with patient.
[2016-08-09] MEDS: LABETALOL HCL IV 100MG VIAL IV PRN (18:05)
--- NOTE | 2016-08-09 18:40 | NUR ---
RECEIVED PT. FRO 3 COOLIN FOR HIGH B.P 198/98.PT HAS NEW ORDER FOR LABETALOL 20 MG/4ML I.V.WHICH WAS ADMINISTERED AT 1830.WILL MONITOR B.P FOR CHANGES
[2016-08-09] MEDS: hydrALAZINE HCL IV 20 MG VIAL IV PRN (20:00)
[2016-08-09] MEDS: SENNOSIDES 8.6 MG TABLET PO SCH (20:33)
[2016-08-09] MEDS: ATORVASTATIN 10 MG TABLET PO SCH (20:33)
--- NOTE | 2016-08-09 21:20 | NUR ---
RN:TD: PT RECEIVED IN BED, ABLE TO OPEN EYES SPONTANEOUSLY. PER FAMILY PATIENT DENIES PAIN. PT REFUSING TO TAKE ANY PO MEDICATIONS AND SPITS THEM OUT. PT BP 200'S SYSTOLIC. D/W DR GARCIA REGARDING ELEVATED BP DESPITE DAYSHIFT GIVING LABETALOL. NEW ORDERS TO INCREASE IV HYDRALAZINE DOSE AND ADMIN NITRO PASTE PREVIOUSLY ORDERED. BP RECHECKED AND IS 180'S. D/W WITH MD REGARDING ELEVATED BP AND IF NURSE SHOULD CONTACT GI DOCTOR PERFORMING EGD ABOUT ABNORMAL VITAL SIGNS. MD STATED IT IS NOT NECESSARY TO NOTIFY OTHER MD REGARDING HIGH BP. D/W PT FAMILY AT THE BEDSIDE REGARDING SCHEDULE EGD AT 1100 08/10. FAMILY AWARE AND CONSENTS SIGNED AND PLACED IN CHART. PER PT DAUGHTER PT DOES NOT WANT TO RECEIVE ANY BLOOD TX DUE TO SCIENTOLOGIST PREFERENCE. DAUGHTER SIGN BLOOD TX REFUSAL ON CONSENT. PT COMPLAINING OF NAUSEA, PT MEDICATED WITH ZOFRAN PER MD ORDERS. ASPIRATION AND FALL PRECAUTIONS IN PLACE.
[2016-08-10] VITALS (9 sets, daily range): BP systolic 161–199; BP diastolic 77–108
[2016-08-10] MEDS: PIPERACILLIN /TAZOBACTAM 2.25 G in IV D5W 50 ML IV SCH ×5 (00:09→23:39)
[2016-08-10] MEDS: IV D5/0.45 NACL 1,000 ML IV PRN ×2 (00:10→22:02)
[2016-08-10] MEDS: hydrALAZINE HCL IV 20 MG VIAL IV PRN ×5 (00:13→22:02)
[2016-08-10] MEDS: NITROGLYCERIN 30 GM TUBE TOP PRN (04:33)
[2016-08-10 06:33] LABS: BASOPHILS # (AUTO) 0.1 /CMM (0.0-0.2); BASOPHILS % (AUTO) 2.3 % (0.0-2.0); EOSINOPHILS # (AUTO) 0.1 /CMM (0.0-0.7); EOSINOPHILS % (AUTO) 1.3 % (0.0-6.0); HEMATOCRIT 33 % (33-45); HEMOGLOBIN 11.1 g/dL (11.5-14.8); LYMPHOCYTES # (AUTO) 1.1 /CMM (0.8-4.8); LYMPHOCYTES % (AUTO) 17.3 % (20.0-44.0); MEAN CORPUSCULAR HEMOGLOBIN 30 PG (26.0-33.0); MEAN CORPUSCULAR HGB CONC 34 g/dl (31.0-36.0); MEAN CORPUSCULAR VOLUME 90 fL (82-100); MONOCYTES # (AUTO) 0.6 /CMM (0.1-1.30); MONOCYTES % (AUTO) 9.1 % (2.0-12.0); NEUTROPHILS # (AUTO) 4.5 /CMM (1.8-8.9); PLATELET COUNT (AUTO) 376 /CMM (150-450); RDW COEFFICIENT OF VARIATION 14.4 (11.5-15.0); RED BLOOD CELL COUNT(AUTO) 3.67 MIL/uL (4.0-5.2); WHITE BLOOD COUNT (AUTO) 6.4 K/uL (4.3-11.0)
[2016-08-10 06:58] LABS: ALBUMIN 2.7 g/dL (3.4-5.0); BILIRUBIN,TOTAL 0.6 mg/dL (0.2-1.0); CALCIUM, SERUM 8.6 mg/dL (8.5-10.1); CREATININE 2.3 mg/dL (0.6-1.3); PHOSPHORUS 3.4 mg/dL (2.5-4.9); POTASSIUM 3.7 mmol/L (3.5-5.1); TOTAL PROTEIN, SERUM 6.7 g/dL (6.4-8.2)
[2016-08-10] MEDS ORDERED: CLONIDINE HCL 0.3 MG/24H PTWK 1 EA PATCH TD SCH (08:00)
[2016-08-10] MEDS: LABETALOL HCL IV 100MG VIAL IV PRN ×2 (08:02→17:19)
[2016-08-10] MEDS: PANTOPRAZOLE 40 MG VIAL IV SCH (08:02)
[2016-08-10] MEDS: ISOSORBIDE DINITRATE (20MG) 20 MG TABLET PO SCH ×3 (09:00→17:00)
[2016-08-10] MEDS: ASPIRIN 81 MG TAB.CHEW PO SCH (09:00)
[2016-08-10] MEDS: ENALAPRIL MALEATE (10 MG) 10 MG TABLET PO SCH ×4 (09:00→17:00)
[2016-08-10] MEDS: AMLODIPINE BESYLATE 5 MG TABLET PO SCH ×3 (09:00→17:00)
[2016-08-10] MEDS: DIVALPROEX SODIUM 125 MG TABLET.DR PO SCH ×3 (09:00→20:01)
[2016-08-10] MEDS: DOCUSATE SODIUM 100 MG CAPSULE PO SCH ×2 (09:00→17:00)
[2016-08-10] MEDS: LINAGLIPTIN 5 MG TABLET PO SCH (09:00)
[2016-08-10] MEDS: CARVEDILOL 12.5 MG TABLET PO SCH ×3 (09:00→17:00)
[2016-08-10] MEDS: hydrALAZINE HCL 50 MG TABLET PO SCH ×4 (09:00→17:00)
[2016-08-10] MEDS: NIFEdipine XL 60 MG TAB PO SCH ×2 (09:00→11:04)
[2016-08-10] MEDS: NITROGLYCERIN 30 GM TUBE TP SCH ×2 (09:13→20:22)
--- NOTE | 2016-08-10 10:17 | NUR ---
KIANA RN NOTE 0720: Received patient lethargic, on room air tolerated well. With PIV intact, IVF infusing as ordered. Patient able to answer yes/no questions and able to follow simple commands. 0800: Noted patient with high BP, 191/101, 180/120 manually. S/E by Dr. Madrid, held PO meds, will given Labetalol IV PRN. 0900: SBP still 180's, Hydralazine IVP and Nitro paste given as ordered. Followed up with Surgery, made OR nurse aware for the high BP. Dr. Mccoy aware for the high BP. 0945: OR nurses picked up patient for EGD, latest BP 181/93. NSR 84. Nurses said anesthesiologist aware for the BP.
[2016-08-10] MEDS: ONDANSETRON HCL/PF 4 MG/2 ML VIAL IVP PRN ×3 (11:11→23:39)
[2016-08-10] MEDS: MORPHINE SULFATE INJ 2 MG/ML DISP.SYRIN IV PRN ×2 (11:17→17:40)
--- NOTE | 2016-08-10 11:42 | NUR ---
KIANA RN NOTE 1100: Patient back from OR, still noted with SBP 180, patient noted with nausea, Zofran given as ordered. Tried to give HTN meds PO but patient unable to tolerate. With order to resume diet prior EGD, ordered cardiac diet, will encourage for lunch. Morphine given, will monitor BP closely. 1140: BP 162/79.
--- NOTE | 2016-08-10 13:13 | NUR ---
KIANA RN NOTE Tried to give VCasotec and Hydralazine PO but patient unable to tolerate to take at this time. BP 161/82. Will give Hydralazine IV PRN.
--- NOTE | 2016-08-10 18:20 | NUR ---
KIANA RN NOTE 1800: Patient still unable to tolerate PO, even tried to crush and mixed with apple sauce but patient refused and c/o nausea. Skipped dinner and missed pm meds, unable to take HTN meds, Labetalol IVP and Hydralazine IVP given as ordered. Patient still with c/o nausea, Zofran given. 1820: BP now 169/76, will continue to monitor.
--- NOTE | 2016-08-10 19:06 | NUR ---
RN:TD: PT RECEIVED IN BED S/P EGD SHOWING GASTRITIS. PT BP CONSISTENTLY ELEVATED, MD AWARE. PT CONTINUES TO HAVE NAUSEA, WILL ADMIN ZOFRAN PRN MD ORDERS. ASPIRATION AND FALL PRECAUTIONS IN PLACE.
[2016-08-10] MEDS: SENNOSIDES 8.6 MG TABLET PO SCH (21:00)
[2016-08-10] MEDS ORDERED: LABETALOL HCL IV 100MG VIAL ONE (23:52)
[2016-08-11] VITALS (9 sets, daily range): BP systolic 98–178; BP diastolic 50–83
[2016-08-11] MEDS: LABETALOL HCL IV 100MG VIAL IV PRN (00:09)
--- NOTE | 2016-08-11 00:29 | NUR ---
rn:td: pt bp remains elevated despite admin of several prn bp meds. md aware. will continue to monitor closely.
[2016-08-11] MEDS: hydrALAZINE HCL IV 20 MG VIAL IV PRN (04:24)
[2016-08-11] MEDS: PIPERACILLIN /TAZOBACTAM 2.25 G in IV D5W 50 ML IV SCH ×3 (05:16→17:09)
--- NOTE | 2016-08-11 07:45 | NUR ---
RN NOTES RECEIVED PT RESTING IN BED, PT AWAKE ALERT ORIENTED TO NAME, NOTED WITH CONFUSION. ON RA MALIHA WELL, NO SOB NOTED. SR ON TELE MONITOR. PT DENIES PAIN AT THIS TIME, PER PREVIOUS SHIFT REPORT PT HAS ELEVATED BP AND HAS EPISODES OF REFUSING PO MEDS. WILL ENCOURAGE. ONGOING IVF D5 1/2 NS@60ML/HR INFUSING ON R AC. KEPT COMFORTABLE, SAFETY MAINTAINED. CALL LIGHT WITHIN REACH, WILL CONTINUE TO MONITOR
[2016-08-11] MEDS: AMLODIPINE BESYLATE 5 MG TABLET PO SCH ×2 (08:45→18:08)
[2016-08-11] MEDS: PANTOPRAZOLE 40 MG VIAL IV SCH (08:45)
[2016-08-11] MEDS: NIFEdipine XL 60 MG TAB PO SCH (08:45)
[2016-08-11] MEDS: hydrALAZINE HCL 50 MG TABLET PO SCH ×3 (08:45→18:11)
[2016-08-11] MEDS: ISOSORBIDE DINITRATE (20MG) 20 MG TABLET PO SCH ×2 (08:46→18:09)
[2016-08-11] MEDS: ASPIRIN 81 MG TAB.CHEW PO SCH (08:46)
[2016-08-11] MEDS: LINAGLIPTIN 5 MG TABLET PO SCH (08:46)
[2016-08-11] MEDS: DIVALPROEX SODIUM 125 MG TABLET.DR PO SCH ×2 (08:46→21:43)
[2016-08-11] MEDS: ENALAPRIL MALEATE (10 MG) 10 MG TABLET PO SCH ×3 (08:46→18:08)
[2016-08-11] MEDS: CARVEDILOL 12.5 MG TABLET PO SCH ×2 (08:46→18:09)
[2016-08-11] MEDS: DOCUSATE SODIUM 100 MG CAPSULE PO SCH ×2 (08:47→18:10)
[2016-08-11] MEDS: NITROGLYCERIN 30 GM TUBE TP SCH ×2 (08:50→21:45)
--- NOTE | 2016-08-11 11:29 | NUR ---
RN NOTES SPOKE WITH DR POND, PT UPDATES REPORTED. MD AWARE PT HAVING POOR PO INTAKE, PER POWER SHOVEL ENGINEER RECOMMENDATION TO START ON BOOST BID, OKAYED BY DR POND.
[2016-08-11] MEDS: BOOST PLUS FOOD-CHOCLATE 237 ML BOX PO SCH (17:00)
--- NOTE | 2016-08-11 18:34 | NUR ---
RN NOTES PT IN BED, RESTING COMFORTABLY. TOOK PM MEDS, ATE SMALL PORTION OF HER DINNER ABOUT 25%. PT DENIES PAIN/DISCOMFORT. ENCOURAGED TO VERBALIZE CONCERNS. KEPT PT COMFORTABLE. NEEDS ATTENDED. FREQUENT VISUAL CHECKS MADE. MS AWARE OF PT POOR PO INTAKE. MONITORED ACCORDINGLY.
--- NOTE | 2016-08-11 19:30 | NUR ---
RN INITIAL NOTES RECEIVED PATIENT ASLEEP, NO S/S OF PAIN OR DISCOMFORT. RESPIRATIONS EVEN AND UNLABORED. SKIN WARM AND DRY TO TOUCH. ON TELE MONITOR SR 78. SIDE RAILS UP AND LOCKED. BED KEPT AT LOWEST POSITION. CALL LIGHT KEPT WITHIN EASY REACH. WILL CONTINUE TO MONITOR.
[2016-08-11] MEDS: SENNOSIDES 8.6 MG TABLET PO SCH (21:45)
[2016-08-12] MEDS: PIPERACILLIN /TAZOBACTAM 2.25 G in IV D5W 50 ML IV SCH ×4 (00:48→17:12)
[2016-08-12 04:00] VITALS: BP_SYST 152; BP_SYST 162; BP_DIAS 75
--- NOTE | 2016-08-12 06:00 | NUR ---
MS RN NOTES PATIENT REFUSED AM LABS, EXPLAINED BENEFITS, PATIENT STILL REFUSED, STATES SHE WANTS TO SLEEP.
--- NOTE | 2016-08-12 07:30 | NUR ---
RN NOTES PATIENT RECEIVED IN BED, ORIENTED TO SELF ONLY, ABLE TO MAKE NEEDS KNOWN. PATIENT REFUSING BLOOD PRESSURE TO BE TAKEN NURSING EDUCATION REINFORCED, STATES "NO I DONT WANT ANYTHING" WILL CONTINUE TO MONITOR. IN NO APPARENT PAIN OR DISCOMFORT, KEPT CLEAN DRY AND COMFORTABLE, CALL LIGHT WITHIN EASY REACH
[2016-08-12 08:00] VITALS: BP 181/87
--- NOTE | 2016-08-12 08:00 | NUR ---
RN NOTES PT REFUSING VITAL SIGNS TO BE TAKEN, DR. HENDERSON AWARE WITH ORDERS FOR PSYCH CONSULT.PT APPROACHED IN CALM UNHURRIED MANNER WILL CONTINUE TO MONITOR, DR. HENDERSON AWARE OF TRENDING OF SBP > 160
[2016-08-12] MEDS: NIFEdipine XL 60 MG TAB PO SCH (09:00)
[2016-08-12] MEDS: DOCUSATE SODIUM 100 MG CAPSULE PO SCH ×2 (09:00→17:16)
[2016-08-12] MEDS: PANTOPRAZOLE 40 MG VIAL IV SCH (09:27)
[2016-08-12] MEDS: hydrALAZINE HCL 50 MG TABLET PO SCH ×3 (09:28→18:44)
[2016-08-12] MEDS: CARVEDILOL 12.5 MG TABLET PO SCH ×2 (09:29→18:11)
[2016-08-12] MEDS: AMLODIPINE BESYLATE 5 MG TABLET PO SCH ×2 (09:29→17:16)
[2016-08-12] MEDS: ISOSORBIDE DINITRATE (20MG) 20 MG TABLET PO SCH ×2 (09:29→18:12)
[2016-08-12] MEDS: DIVALPROEX SODIUM 125 MG TABLET.DR PO SCH ×3 (09:30→17:16)
[2016-08-12] MEDS: ENALAPRIL MALEATE (10 MG) 10 MG TABLET PO SCH ×3 (09:30→17:17)
[2016-08-12] MEDS: ASPIRIN 81 MG TAB.CHEW PO SCH (09:31)
[2016-08-12] MEDS: LINAGLIPTIN 5 MG TABLET PO SCH (09:31)
[2016-08-12] MEDS: BOOST PLUS FOOD-CHOCLATE 237 ML BOX PO SCH ×2 (09:33→17:13)
[2016-08-12] MEDS: NITROGLYCERIN 30 GM TUBE TP SCH ×2 (10:43→20:51)
--- NOTE | 2016-08-12 13:00 | NUR ---
RN NOTES PT SEEN AND EXAMINED BY DR. GUTIERREZ, AWARE PT CONTINUE TO REFUSED TREATMENT AND MEDICATIONS SELECTIVELY AT TIMES, PER DR. GUTIERREZ, PTS BASELINE, WILL CONTINUE TO MONITOR AND CONTINUE CURRENT TREATMENT
[2016-08-12 13:51] LABS: ALBUMIN 2.3 g/dL (3.4-5.0); BILIRUBIN,TOTAL 0.6 mg/dL (0.2-1.0); CALCIUM, SERUM 8.2 mg/dL (8.5-10.1); PHOSPHORUS 4.2 mg/dL (2.5-4.9); POTASSIUM 3.6 mmol/L (3.5-5.1); TOTAL PROTEIN, SERUM 5.9 g/dL (6.4-8.2)
[2016-08-12 13:52] LABS: BASOPHILS # (AUTO) 0.1 /CMM (0.0-0.2); EOSINOPHILS # (AUTO) 0.4 /CMM (0.0-0.7); EOSINOPHILS % (AUTO) 5.3 % (0.0-6.0); HEMATOCRIT 30 % (33-45); HEMOGLOBIN 10.1 g/dL (11.5-14.8); LYMPHOCYTES # (AUTO) 1.3 /CMM (0.8-4.8); LYMPHOCYTES % (AUTO) 18.3 % (20.0-44.0); MEAN CORPUSCULAR HEMOGLOBIN 31 PG (26.0-33.0); MEAN CORPUSCULAR HGB CONC 34 g/dl (31.0-36.0); MEAN CORPUSCULAR VOLUME 91 fL (82-100); MONOCYTES # (AUTO) 0.5 /CMM (0.1-1.30); MONOCYTES % (AUTO) 7.4 % (2.0-12.0); NEUTROPHILS # (AUTO) 4.7 /CMM (1.8-8.9); PLATELET COUNT (AUTO) 317 /CMM (150-450); RDW COEFFICIENT OF VARIATION 13.4 (11.5-15.0)
[2016-08-12 17:00] VITALS: BP 127/66
--- NOTE | 2016-08-12 18:52 | NUR ---
RN NOTES PT BP AT 97/60 HYDRALAZINE HELD, AWARE, WILL CONTINUE TO MONITOR, NURSING EDUCATION REINFORCED REGARDING MEDICATION AND TREATMENT WITH VERBAL UNDERSTANDING
--- NOTE | 2016-08-12 18:53 | NUR ---
RN NOTES PATIENT IN BED, ORIENTED TO SELF ONLY, ABLE TO MAKE NEEDS KNOWN. RESPIRATIONS EVEN AND UNLABORED, IN NO APPARENT PAIN OR DISCOMFORT, KEPT CLEAN DRY AND COMFORTABLE,ALL NEEDS ATTENDED, CALL LIGHT WITHIN EASY REACH, WILL CONTINUE TO MONITOR AND ENDORSE TO NEXT SHIFT FOR CONTINUITY OF CARE
--- NOTE | 2016-08-12 19:30 | NUR ---
MS RN INITIAL NOTES RECEIVED PATIENT AWAKE, A/OX2, ABLE TO MAKE NEEDS KNOWN. NO RESPIRATORY DISTRESS NOTED, ON ROOM AIR. C/O MINIMAL ABDOMINAL PAIN. SKIN WARM AND DRY TO TOUCH. WITH LH 22G SL, PATENT, INTACT. HOB ELEVATED. SIDE RAILS UP AND LOCKED. BED KEPT AT LOWEST POSITION. CALL LIGHT KEPT WITHIN EASY REACH. WILL CONTINUE TO MONITOR.
[2016-08-12 20:00] VITALS: BP 121/68
[2016-08-12] MEDS: MIRTAZAPINE 15 MG TABLET PO SCH (20:50)
[2016-08-12] MEDS: ACETAMINOPHEN 325 MG TABLET PO PRN (20:54)
[2016-08-12] MEDS: SENNOSIDES 8.6 MG TABLET PO SCH (21:03)
[2016-08-13] MEDS: PIPERACILLIN /TAZOBACTAM 2.25 G in IV D5W 50 ML IV SCH ×5 (00:53→23:50)
[2016-08-13 04:00] VITALS: BP 152/71
--- NOTE | 2016-08-13 07:14 | NUR ---
MS RN CLOSING NOTES NO SIGNIFICANT CHANGES OVERNIGHT. PATIENT HAD ONE EPISODE OF TRYING TO GET OUT OF BED, ASSISTED PATIENT TO RESTROOM, ABLE TO HAVE SMALL BM. PATIENT PULLED OUT IV ON LEFT HAND, ABLE TO PLACE ANOTHER IV ON LEFT HAND, WITH NO S/S OF INFILTRATION. NO RESPIRATORY DISTRESS NOTED, ON ROOM AIR. ALL NEEDS ANTICIPATED AND MET. NO EPISODE OF N/V. OFFERED SNACKS AND FLUIDS. KEPT CLEAN AND DRY. TURNED AND REPOSITIONED Q2 AND PRN. REORIENTED NEEDED. HOB ELEVATED. SIDE RAILS UP AND LOCKED. BED KEPT AT LOWEST POSITION. CALL LIGHT KEPT WITHIN EASY REACH. CONTINUITY OF CARE ENDORSED TO AM NURSE.
--- NOTE | 2016-08-13 07:20 | NUR ---
RN INITIAL NOTE REPORT RECEIVED FOR [facility] PM SHIFT.PT A/O X 1-2 WELSH SPEAKING. PT MS. PT ON RA NO S/S OF SOB. L HAND #22G PATENT AND INTACT. PT RESTING COMFORTABLY , CLEAN WARM AND DRY. WILL CONTINUE TO MONITOR CLOSELY. ALL SAFETY MEASURES IN PLACE.
[2016-08-13 08:00] VITALS: BP 167/72
--- NOTE | 2016-08-13 08:30 | NUR ---
RN NOTE PT DID NOT WANT TO EAT BREAKFAST. REPEATEDLY ASKED PT CLOSES EYES AND DOES NOT RESPOND. EVENTUALLY NODDED NO TO EATING BREAKFAST. PT TOOK MEDICATION AFTER REPEATING HOW IMPORTANT MEDICATION IS. PT WAS RELUCTANT BUT EVENTUALLY TOOK MEDICATION.
[2016-08-13] MEDS: ASPIRIN 81 MG TAB.CHEW PO SCH (08:31)
[2016-08-13] MEDS: PANTOPRAZOLE 40 MG VIAL IV SCH (08:31)
[2016-08-13] MEDS: DIVALPROEX SODIUM 125 MG TABLET.DR PO SCH ×3 (08:36→17:53)
[2016-08-13] MEDS: LINAGLIPTIN 5 MG TABLET PO SCH (08:36)
[2016-08-13] MEDS: DOCUSATE SODIUM 100 MG CAPSULE PO SCH ×2 (08:36→17:53)
[2016-08-13] MEDS: ISOSORBIDE DINITRATE (20MG) 20 MG TABLET PO SCH ×2 (08:37→17:00)
[2016-08-13] MEDS: ENALAPRIL MALEATE (10 MG) 10 MG TABLET PO SCH ×3 (08:37→17:00)
[2016-08-13] MEDS: NIFEdipine XL 60 MG TAB PO SCH (08:37)
[2016-08-13] MEDS: AMLODIPINE BESYLATE 5 MG TABLET PO SCH ×2 (08:38→17:00)
[2016-08-13] MEDS: CARVEDILOL 12.5 MG TABLET PO SCH ×2 (08:38→17:00)
[2016-08-13] MEDS: NITROGLYCERIN 30 GM TUBE TP SCH ×2 (08:39→20:44)
[2016-08-13] MEDS: hydrALAZINE HCL 50 MG TABLET PO SCH ×3 (08:42→17:00)
[2016-08-13] MEDS: BOOST PLUS FOOD-CHOCLATE 237 ML BOX PO SCH ×2 (08:58→17:53)
--- NOTE | 2016-08-13 12:23 | NUR ---
RN NOTE PT NOT GIVEN PROTONIX PO DUE TO IV ADMINISTRATION OF PROTONIX IV DAILY DOSE GIVEN IN AM.
[2016-08-13 16:00] VITALS: BP_SYST 103; BP_SYST 99; BP_DIAS 55
--- NOTE | 2016-08-13 19:10 | NUR ---
RN CLOSING NOTE REPORT GIVEN TO CARROLL TRIPATHI PM SHIFT FOR KAIA.PT A/O X 1-2 BRUNEIAN SPEAKING. PT MS. PT ON RA NO S/S OF SOB. L HAND #22G PATENT AND INTACT. PT RESTING COMFORTABLY , CLEAN WARM AND DRY. ALL SAFETY MEASURES IN PLACE.
[2016-08-13 20:00] VITALS: BP 98/57
[2016-08-13] MEDS: MIRTAZAPINE 15 MG TABLET PO SCH (20:49)
[2016-08-13] MEDS: SENNOSIDES 8.6 MG TABLET PO SCH (21:24)
[2016-08-14 04:00] VITALS: BP 112/61
[2016-08-14] MEDS: PIPERACILLIN /TAZOBACTAM 2.25 G in IV D5W 50 ML IV SCH ×4 (06:00→23:40)
[2016-08-14 08:00] VITALS: BP 134/70
[2016-08-14] MEDS: BOOST PLUS FOOD-CHOCLATE 237 ML BOX PO SCH ×2 (08:00→16:22)
[2016-08-14] MEDS: ISOSORBIDE DINITRATE (20MG) 20 MG TABLET PO SCH ×2 (09:25→16:21)
[2016-08-14] MEDS: AMLODIPINE BESYLATE 5 MG TABLET PO SCH ×2 (09:26→16:22)
[2016-08-14] MEDS: PANTOPRAZOLE 40 MG TABLET.DR PO SCH (09:26)
[2016-08-14] MEDS: ENALAPRIL MALEATE (10 MG) 10 MG TABLET PO SCH ×3 (09:26→16:20)
[2016-08-14] MEDS: NIFEdipine XL 60 MG TAB PO SCH (09:27)
[2016-08-14] MEDS: ASPIRIN 81 MG TAB.CHEW PO SCH (09:27)
[2016-08-14] MEDS: DIVALPROEX SODIUM 125 MG TABLET.DR PO SCH ×3 (09:27→16:20)
[2016-08-14] MEDS: LINAGLIPTIN 5 MG TABLET PO SCH (09:27)
[2016-08-14] MEDS: CARVEDILOL 12.5 MG TABLET PO SCH ×2 (09:27→16:21)
[2016-08-14] MEDS: DOCUSATE SODIUM 100 MG CAPSULE PO SCH ×2 (09:28→16:20)
[2016-08-14] MEDS: hydrALAZINE HCL 50 MG TABLET PO SCH ×3 (09:28→16:21)
[2016-08-14] MEDS: NITROGLYCERIN 30 GM TUBE TP SCH ×2 (09:30→21:00)
[2016-08-14 16:00] VITALS: BP 120/70
[2016-08-14] MEDS: MIRTAZAPINE 15 MG TABLET PO SCH (20:00)
--- NOTE | 2016-08-14 20:59 | NUR ---
MS-1/CALL CENTER SUPPORT CONSULTANT REPORT TO EZIO BARRY FOR CONT OF CARE.
--- NOTE | 2016-08-14 21:20 | NUR ---
MS RN NOTE ASSUMED CARE FOR THE PT, PT IN BED ASLEEP, AROUSABLE. REFUSED DUE MEDS AND REFUSING BLOOD PRESSURE CHECK. VERY NON COMPLIANT. NO DISTRESS OR DISCOMFORT NOTED. DENIES PAIN. SIDE RAILS UP X 2 AND CALL LIGHT WITHIN REACH. CONTINUE TO MONITOR HER.
[2016-08-14] MEDS: SENNOSIDES 8.6 MG TABLET PO SCH (21:33)
--- NOTE | 2016-08-15 04:00 | NUR ---
MS RN NOTE PT REFUSED VITAL SIGNS CHECK NOW AND AT MIDNIGHT.
[2016-08-15] MEDS: PIPERACILLIN /TAZOBACTAM 2.25 G in IV D5W 50 ML IV SCH ×3 (05:26→17:58)
--- NOTE | 2016-08-15 06:48 | NUR ---
MS RN NOTE PT IN BED AWAKE. NON COMPLIANT. NO DISTRESS OR DISCOMFORT NOTED. DENIES PAIN. SIDE RAILS UP X 2 AND CALL LIGHT WITHIN REACH. WILL ENDORSE TO DAY SHIFT NURSE FOR CONTINUE TO CARE.
--- NOTE | 2016-08-15 06:50 | NUR ---
MS RN NOTE PT REFUSED VS AND MEDICATION DURING THE NIGHT EXCEPT IV ATB'S.
[2016-08-15 08:00] VITALS: BP 165/81
[2016-08-15] MEDS: BOOST PLUS FOOD-CHOCLATE 237 ML BOX PO SCH ×2 (11:01→17:00)
[2016-08-15] MEDS: hydrALAZINE HCL 50 MG TABLET PO SCH ×3 (11:01→17:00)
[2016-08-15] MEDS: DOCUSATE SODIUM 100 MG CAPSULE PO SCH ×2 (11:02→18:09)
[2016-08-15] MEDS: LINAGLIPTIN 5 MG TABLET PO SCH (11:02)
[2016-08-15] MEDS: ISOSORBIDE DINITRATE (20MG) 20 MG TABLET PO SCH ×2 (11:02→17:00)
[2016-08-15] MEDS: ENALAPRIL MALEATE (10 MG) 10 MG TABLET PO SCH ×3 (11:02→17:00)
[2016-08-15] MEDS: NIFEdipine XL 60 MG TAB PO SCH (11:02)
[2016-08-15] MEDS: PANTOPRAZOLE 40 MG TABLET.DR PO SCH (11:03)
[2016-08-15] MEDS: DIVALPROEX SODIUM 125 MG TABLET.DR PO SCH ×3 (11:03→18:09)
[2016-08-15] MEDS: CARVEDILOL 12.5 MG TABLET PO SCH ×2 (11:03→17:00)
[2016-08-15] MEDS: AMLODIPINE BESYLATE 5 MG TABLET PO SCH ×2 (11:03→17:00)
[2016-08-15] MEDS: ASPIRIN 81 MG TAB.CHEW PO SCH (11:04)
[2016-08-15] MEDS: NITROGLYCERIN 30 GM TUBE TP SCH ×2 (11:05→21:03)
--- NOTE | 2016-08-15 13:00 | NUR ---
RN NOTES PT SCHEDULED 3 BP MEDS WERE HELD BECAUSE MORNING DOSES OF THE SAME MEDS WERE GIVEN LATE CLOSER TO AFTERNOON DOSE, PT REFUSED EARLIER. WILL ADMINISTER 1700 DOSES.
--- NOTE | 2016-08-15 15:00 | NUR ---
DR. POND SEEN AND EVALUATED PT.,REVIEWED INTAKE AND AWARE POOR PO AND REFUSING MEDS AT TIMES,PER MD NOTIFY FAMILY IF OK WITH PEG.
[2016-08-15 16:00] VITALS: BP 108/58
[2016-08-15] MEDS: CLONIDINE HCL 0.3 MG/24H PTWK 1 EA PATCH TD SCH (17:57)
--- NOTE | 2016-08-15 19:13 | NUR ---
DAUGHTER AT BEDSIDE UPDATED PHONE NUMBER VERBALIZED SHE NEEDS TO DISCUSSED IT WITH HER BROTHER.[phone] NEW PHONE NUMBER FOR DAUGHTER.
--- NOTE | 2016-08-15 19:30 | NUR ---
MS RN INITIAL NOTES RECEIVED PATIENT AWAKE, DAUGHTER SILVINO AT BEDSIDE. INFORMED DAUGHTER REGARDING PLAN FOR PEG PLACEMENT DUE TO POOR ORAL INTAKE, DAUGHTER SILVINO STATED SHE SPOKE WITH HER BROTHER AND THEY WOULD LIKE TO HOLD OFF ON ANY PEG PLACEMENT AT THIS TIME. DAUGHTER FEEDING PATIENT WITH OUTSIDE FOOD, PER DAUGHTER PATIENT EATS MORE OF OUTSIDE FOOD AND WILL ATTEMPT TO HAVE ANOTHER FAMILY MEMBER FEED HER IN THE DAY TIME. PATIENT DENIES PAIN OR DISCOMFORT. SKIN WARM AND DRY TO TOUCH. NO C/O N/V. HOB ELEVATED. SIDE RAILS UP AND LOCKED. BED KEPT AT LOWEST POSITION. CALL LIGHT KEPT WITHIN EASY REACH. WILL CONTINUE OT MONITOR.
--- NOTE | 2016-08-15 19:40 | NUR ---
INFORMED DR. ANDRADE REGARDING HOLD FOR PEG PLACEMENT PER FAMILY REQUEST.
[2016-08-15 20:00] VITALS: BP_SYST 114; BP_SYST 119; BP_DIAS 59
[2016-08-15] MEDS: MIRTAZAPINE 15 MG TABLET PO SCH (20:58)
[2016-08-15] MEDS: SENNOSIDES 8.6 MG TABLET PO SCH (21:03)
[2016-08-16] MEDS: PIPERACILLIN /TAZOBACTAM 2.25 G in IV D5W 50 ML IV SCH ×4 (00:34→18:02)
[2016-08-16 04:00] VITALS: BP 111/64
--- NOTE | 2016-08-16 05:00 | NUR ---
urine specimen obtained via in and out catheter, patient with no output in diaper, obtained 750ml of urine in catheter. will continue to monitor.
[2016-08-16 06:14] LABS: BASOPHILS % (AUTO) 0.6 % (0.0-2.0); EOSINOPHILS # (AUTO) 0.3 /CMM (0.0-0.7); EOSINOPHILS % (AUTO) 3.9 % (0.0-6.0); HEMATOCRIT 28 % (33-45); HEMOGLOBIN 9.5 g/dL (11.5-14.8); LYMPHOCYTES # (AUTO) 1.2 /CMM (0.8-4.8); LYMPHOCYTES % (AUTO) 15.9 % (20.0-44.0); MEAN CORPUSCULAR HEMOGLOBIN 31 PG (26.0-33.0); MEAN CORPUSCULAR HGB CONC 34 g/dl (31.0-36.0); MEAN CORPUSCULAR VOLUME 91 fL (82-100); MONOCYTES # (AUTO) 0.9 /CMM (0.1-1.30); MONOCYTES % (AUTO) 11.4 % (2.0-12.0); NEUTROPHILS # (AUTO) 5.1 /CMM (1.8-8.9); NEUTROPHILS % (AUTO) 68.2 % (43.0-81.0); PLATELET COUNT (AUTO) 337 /CMM (150-450); RDW COEFFICIENT OF VARIATION 15.1 (11.5-15.0); RED BLOOD CELL COUNT(AUTO) 3.11 MIL/uL (4.0-5.2); WHITE BLOOD COUNT (AUTO) 7.6 K/uL (4.3-11.0)
[2016-08-16 06:31] LABS: APPEARANCE,URINE CLEAR (CLEAR); BILIRUBIN,URINE NEGATIVE (NEGATIVE); BLOOD, URINE NEGATIVE Ery/uL (NEGATIVE); COLOR,URINE YELLOW (YELLOW); KETONES,URINE NEGATIVE (NEGATIVE); LEUKOCYTE ESTERASE ,URINE NEGATIVE (NEGATIVE); NITRITE, URINE NEGATIVE (NEGATIVE); PROTEIN,URINE 2+ mg/dl (NEGATIVE); UGLUCOSE NEGATIVE (NEGATIVE); UROBILINOGEN,URINE 0.2 EU/dL (0.2)
[2016-08-16 06:36] LABS: CALCIUM, SERUM 8.2 mg/dL (8.5-10.1); CREATININE 5.1 mg/dL (0.6-1.3); MAGNESIUM 2.1 mg/dL (1.8-2.4); PHOSPHORUS 5.4 mg/dL (2.5-4.9); POTASSIUM 4.2 mmol/L (3.5-5.1)
[2016-08-16 06:40] LABS: CREATININE, URINE 58.7 MG/DL (30.0-125.0); URINE TOTAL PROTEIN 215.5 mg/dL (0-11.9)
[2016-08-16] MEDS: ACETAMINOPHEN 325 MG TABLET PO PRN (06:40)
[2016-08-16 06:50] LABS: BACTERIA,URINE Rare /HPF (None Seen); RBC,URINE NONE SEEN /HPF (0-2); WBC,URINE NONE SEEN /HPF (0-3)
[2016-08-16 06:51] LABS: MUCUS,URINE Rare /LPF (None Seen); SQUAMOUS EPITHELIAL CELL,UR Rare /HPF (None Seen); URINE AMORPHOUS PHOSPHATES Moderate /HPF (None Seen)
--- NOTE | 2016-08-16 06:55 | NUR ---
MS RN CLOSING NOTES NO SIGNIFICANT CHANGES OVERNIGHT. NO RESPIRATORY DISTRESS NOTED. NO N/V. ALL NEEDS ANTICIPATED AND MET. NO RESPIRATORY DISTRESS. SKIN WARM AND DRY TO TOUCH. TURNED AND REPOSITIONED Q2 AND PRN. KEPT CLEAN AND DRY TO TO TOUCH. SIDE RAILS UP AND LOCKED. BED KEPT AT LOWEST POSITION. CALL LIGHT KEPT WITHIN EASY REACH. WILL ENDORSE CONTINUITY OF CARE TO AM NURSE.
[2016-08-16 08:00] VITALS: BP 111/64
[2016-08-16] MEDS: BOOST PLUS FOOD-CHOCLATE 237 ML BOX PO SCH ×2 (08:00→17:00)
[2016-08-16 08:24] LABS: EOSINOPHIL,URINE None Seen
[2016-08-16] MEDS: NITROGLYCERIN 30 GM TUBE TP SCH ×2 (09:57→21:00)
[2016-08-16] MEDS: ASPIRIN 81 MG TAB.CHEW PO SCH (09:58)
[2016-08-16] MEDS: PANTOPRAZOLE 40 MG TABLET.DR PO SCH (09:58)
[2016-08-16] MEDS: DOCUSATE SODIUM 100 MG CAPSULE PO SCH ×2 (09:58→18:04)
[2016-08-16] MEDS: LINAGLIPTIN 5 MG TABLET PO SCH (09:58)
[2016-08-16] MEDS: NIFEdipine XL 60 MG TAB PO SCH (09:58)
[2016-08-16] MEDS: DIVALPROEX SODIUM 125 MG TABLET.DR PO SCH ×3 (09:58→18:05)
[2016-08-16] MEDS: AMLODIPINE BESYLATE 5 MG TABLET PO SCH ×2 (09:59→18:04)
[2016-08-16] MEDS: CARVEDILOL 12.5 MG TABLET PO SCH ×2 (09:59→18:05)
[2016-08-16] MEDS: ISOSORBIDE DINITRATE (20MG) 20 MG TABLET PO SCH ×2 (09:59→18:04)
[2016-08-16] MEDS: ENALAPRIL MALEATE (10 MG) 10 MG TABLET PO SCH ×3 (10:00→18:03)
[2016-08-16] MEDS: hydrALAZINE HCL 50 MG TABLET PO SCH ×3 (10:00→18:03)
[2016-08-16 16:00] VITALS: BP 130/66
[2016-08-16] MEDS ORDERED: IV SET PRIMARY PUMP SET 1 EA INFUS.SET MC ONE (16:34)
[2016-08-16] MEDS ORDERED: SECONDARY IV SET 1 EA INFUS.SET MC ONE (17:48)
[2016-08-16] MEDS: IV 1/2NS 1000 ML 1,000 ML IV PRN (18:01)
[2016-08-16 20:00] VITALS: BP 92/55
[2016-08-16] MEDS: MIRTAZAPINE 15 MG TABLET PO SCH (20:00)
--- NOTE | 2016-08-16 21:30 | NUR ---
RN DF PT BP AT 1999 OF 92/55 NOW BP OF 99/56.PT ADMIN SEVERAL ANTI HTN MEDS DURING DAY SHIFT. PT WITH HX OF UNCONTROLLED HTN. I HELD PT NITROPASTE AT 2129 2ND DECREASED BP WELL PT,S REFUSAL TO TAKE BP MEDS AT THIS TIME. PT A/OX4, CALM,COOPERATIVE, NO DISTRESS NOTED.
[2016-08-16] MEDS: SENNOSIDES 8.6 MG TABLET PO SCH (22:00)
[2016-08-17] MEDS: PIPERACILLIN /TAZOBACTAM 2.25 G in IV D5W 50 ML IV SCH ×4 (00:21→17:29)
--- NOTE | 2016-08-17 01:21 | NUR ---
ASHA PENN CHANGE OF ASSIGNMENT.REPORT PROVIDED TO ASHA ONEILL. PT STABLE,VSS. A/OX2. NO DISTRESS NOTED.
[2016-08-17 04:00] VITALS: BP 131/65
[2016-08-17] MEDS: IV 1/2NS 1000 ML 1,000 ML IV PRN (05:56)
--- NOTE | 2016-08-17 07:16 | NUR ---
MS RN CLOSING NOTES NO SIGNIFICANT CHANGES OVERNIGHT. NO RESPIRATORY DISTRESS NOTED. NO N/V. ALL NEEDS ANTICIPATED AND MET. NO RESPIRATORY DISTRESS. SKIN WARM AND DRY TO TOUCH. TURNED AND REPOSITIONED Q2 AND PRN. KEPT CLEAN AND DRY TO TO TOUCH. SIDE RAILS UP AND LOCKED. BED KEPT AT LOWEST POSITION. CALL LIGHT KEPT WITHIN EASY REACH, SAFETY MEASURE IN PLACE.
--- NOTE | 2016-08-17 07:25 | NUR ---
RN INITIAL NOTES PT IN BED, A/O X1, CONFUSED, SOMETIMES FOLLOWS COMMANDS. ON RA, TOLERATING WELL, NO SOB, NO SIGNS OF DISTRESS/PAIN. SKIN CDI, NO OPEN WOUNDS. IV ON LEFT HAND 22G, CDI, NO SIGNS OF INFECTION/INFILTRATION, RUNNING 1/2NS @ 100 CC/HR, TOLERATING WELL. CALL LIGHT WITHIN EASY REACH, SAFETY MEASURES MAINTAINED, WILL CONTINUE TO MONITOR AND FOLLOW MD ORDERS. PT IN OVERALL STABLE CONDITION.
[2016-08-17 08:00] VITALS: BP 139/71
[2016-08-17] MEDS: PANTOPRAZOLE 40 MG TABLET.DR PO SCH (09:01)
[2016-08-17] MEDS: DOCUSATE SODIUM 100 MG CAPSULE PO SCH ×2 (09:01→17:21)
[2016-08-17] MEDS: CARVEDILOL 12.5 MG TABLET PO SCH ×2 (09:03→17:00)
[2016-08-17] MEDS: hydrALAZINE HCL 50 MG TABLET PO SCH ×3 (09:03→17:00)
[2016-08-17] MEDS: NIFEdipine XL 60 MG TAB PO SCH (09:03)
[2016-08-17] MEDS: ENALAPRIL MALEATE (10 MG) 10 MG TABLET PO SCH ×3 (09:03→17:00)
[2016-08-17] MEDS: LINAGLIPTIN 5 MG TABLET PO SCH (09:04)
[2016-08-17] MEDS: ISOSORBIDE DINITRATE (20MG) 20 MG TABLET PO SCH ×2 (09:04→17:00)
[2016-08-17] MEDS: BOOST PLUS FOOD-CHOCLATE 237 ML BOX PO SCH ×2 (09:04→17:21)
[2016-08-17] MEDS: DIVALPROEX SODIUM 125 MG TABLET.DR PO SCH ×3 (09:04→17:23)
[2016-08-17] MEDS: ASPIRIN 81 MG TAB.CHEW PO SCH (09:04)
[2016-08-17] MEDS: NITROGLYCERIN 30 GM TUBE TP SCH (09:04)
[2016-08-17] MEDS: AMLODIPINE BESYLATE 5 MG TABLET PO SCH ×2 (09:05→17:00)
[2016-08-17] MEDS ORDERED: MIRT15TA PO (11:32)
[2016-08-17] MEDS ORDERED: DIVA125T2 PO (11:32)
--- NOTE | 2016-08-17 14:43 | NUR ---
RN NOTES REPORT GIVEN TO BHUMI RAMACHANDRAN. EMT TO ARRIVE @ 1730. PT IN STABLE CONDITION.
[2016-08-17 16:00] VITALS: BP 107/55
[2016-08-17 17:00] VITALS: BP 104/56
--- NOTE | 2016-08-17 19:23 | NUR ---
RN CLOSING NOTES GAVE REPORT TO EMT, REMOVED IV'S, CDI, ALL MD ORDERS CARRIED OUT, PT DISCHARGED SAFELY. ID BAND REMOVED, ALL DISCHARGE PAPERS SIGNED, ALL BELONGINGS WITH PT.
== END 2016-08-17 20:22 | DRG 444 ==
LOC: ER 18:24 → MEDSG2 19:49 → TELE 20:06 → MED 08-09 10:25 → TELE1 08-09 17:39 → TELE-TD 08-09 17:58 → TELE1 08-11 11:13 → MEDSG1 08-11 20:46
PROVIDERS: ADMIT Internal Medicine; ATTEND Internal Medicine
PROC: 0DJ08ZZ Inspection of Upper Intestinal Tract, Via Natural or Artificial Opening Endoscopic (ICD-10-PCS; principal; 2016-08-10 11:00)
DX: K81.0 Acute cholecystitis (principal); I21.4 Non-ST elevation (NSTEMI) myocardial infarction; N17.0 Acute kidney failure with tubular necrosis; E43 Unspecified severe protein-calorie malnutrition; G92 Toxic encephalopathy; I50.32 Chronic diastolic (congestive) heart failure; I13.0 Hypertensive heart and chronic kidney disease with heart failure and stage 1 through stage 4 chronic kidney disease, or unspecified chronic kidney disease; D68.59 Other primary thrombophilia; K82.1 Hydrops of gallbladder; F03.91 Unspecified dementia, unspecified severity, with behavioral disturbance; Z68.1 Body mass index [BMI] 19.9 or less, adult; K52.9 Noninfective gastroenteritis and colitis, unspecified; R13.10 Dysphagia, unspecified; K20.9 Esophagitis, unspecified; E11.22 Type 2 diabetes mellitus with diabetic chronic kidney disease; I12.9 Hypertensive chronic kidney disease with stage 1 through stage 4 chronic kidney disease, or unspecified chronic kidney disease; N18.9 Chronic kidney disease, unspecified; G40.909 Epilepsy, unspecified, not intractable, without status epilepticus; E78.5 Hyperlipidemia, unspecified; D63.1 Anemia in chronic kidney disease; D50.9 Iron deficiency anemia, unspecified; E86.0 Dehydration; I25.2 Old myocardial infarction; M19.90 Unspecified osteoarthritis, unspecified site; F39 Unspecified mood [affective] disorder
CPT/HCPCS: 36415; 43235; 71010-TC; 76700-TC; 80048-TC; 80053-TC; 80061-TC; 80076-TC; 81000-TC; 82570-TC; 82962-TC; 83690-TC; 83735-TC; 84100-TC; 84155-TC; 84300-TC; 84443-TC; 84484-TC; 85025-TC; 85730-TC; 87081-TC; A4606; C9113; J0360; J2270; J2405; J2543; J2704; J2916; J3490; J7030; J7060; Z7610